=== PATIENT | male | born 1940 | race Caucasian/White ===

== ENCOUNTER 2016-09-28 19:10 | Inpatient (IN) | payer MEDICARE ==
[~2016-09-28] VITALS: Ht 170.2 cm; Wt 115.2 kg
[2016-09-28] MEDS ORDERED: MAG HYDROX/AL HYDROX/SIMETH 30 ML ORAL.SUSP PO PRN (20:00)
[2016-09-28] MEDS ORDERED: METHYL SALICYLATE/MENTHOL TOPICAL OINTMENT 29GM TUBE. TP PRN (20:00)
[2016-09-28] MEDS ORDERED: MAGNESIUM HYDROXIDE 2,400 MG/30 ML ORAL.SUSP. PO PRN (20:00)
[2016-09-28] MEDS ORDERED: ACETAMINOPHEN 325 MG TABLET PO PRN (20:00)
[2016-09-28] MEDS ORDERED: MAGN400T3 PO (20:25)
[2016-09-28] MEDS ORDERED: METF500T4 PO (20:25)
[2016-09-28] MEDS ORDERED: CYAN100031 PO (20:25)
[2016-09-28] MEDS ORDERED: ATOR20TA58 PO (20:25)
[2016-09-28] MEDS ORDERED: POTA10CA53 PO (20:25)
[2016-09-28] MEDS ORDERED: CLOT15CR4 TP (20:25)
[2016-09-28] MEDS ORDERED: FINA5TAB4 PO (20:25)
[2016-09-28] MEDS ORDERED: DULO30CA43 PO (20:25)
[2016-09-28] MEDS ORDERED: ASPI-630 PO (20:25)
[2016-09-28 20:31] LABS: ALBUMIN 3.7 g/dL (3.4-5.0); ALBUMIN/GLOBULIN RATIO 0.9 (1.0-1.7); CALCIUM 9.3 mg/dL (8.5-10.1); CREATININE 0.9 mg/dL (0.7-1.3); GFR 81.8; MAGNESIUM 1.9 mg/dL (1.8-2.4); POTASSIUM 3.8 mmol/L (3.5-5.1); TOTAL BILIRUBIN 0.4 mg/dL (0.2-1.0); TOTAL PROTEIN 7.7 g/dL (6.4-8.2)
[2016-09-28 20:39] LABS: BASO # 0.1 x10^3/uL (0.0-0.2); BASO % 1 % (0-3); EOS # 0.3 x10^3/uL (0.0-0.7); EOS % 4 % (0-3); HEMATOCRIT 44.7 % (39.0-53.0); HEMOGLOBIN 15.2 g/dL (13.0-17.5); LYMPH # 3.2 x10^3/uL (1.0-4.8); LYMPH % 35 % (24-48); MEAN CORPUSCULAR HEMOGLOBIN 31 pg (25-35); MEAN CORPUSCULAR HGB CONC 34 g/dL (31-37); MEAN CORPUSCULAR VOLUME 92 fL (79-100); MONO # 0.8 x10^3/uL (0.0-1.1); MONO % 9 % (0-9); NEUT # 4.6 x10^3uL (1.8-7.7); NEUT % 51 % (31-73); PLATELET COUNT 182 x10^3/uL (140-400); RED BLOOD COUNT 4.84 x10^6/uL (4.30-5.70); WHITE BLOOD COUNT 9.1 x10^3/uL (4.0-11.0)
[2016-09-28] MEDS ORDERED: POLY17PO5 PO (20:40)
[2016-09-28] MEDS ORDERED: METO25TA9 PO (20:40)
[2016-09-28] MEDS ORDERED: ZOLP5TAB PO (20:40)
[2016-09-28] MEDS ORDERED: OXYC-328 PO (20:40)
[2016-09-28] MEDS ORDERED: WHEA1POW5 PO (20:40)
[2016-09-28] MEDS ORDERED: MV-M1TAB8 PO (20:40)
[2016-09-28] MEDS ORDERED: TRAZ50TA15 PO (20:40)
[2016-09-28] MEDS ORDERED: ZOLPIDEM 5 MG TABLET. PO PRN (20:45)
[2016-09-28] MEDS: ATORVASTATIN CALCIUM 20 MG TABLET PO SCH (21:35)
[2016-09-28] MEDS: DULoxetine HCL 30 MG CAPSULE.DR PO SCH (21:36)
[2016-09-28] MEDS: traZODone 50 MG TABLET. PO SCH (21:36)
[2016-09-28 22:37] VITALS: BP 163/88
[2016-09-28] MEDS: CLOTRIMAZOLE 1% TOPICAL CREAM 30GM TUBE. TP SCH (23:50)
[2016-09-28] MEDS: oxyCODONE/APAP 10/325 1 TAB TABLET PO PRN (23:54)
--- NOTE | 2016-09-29 05:37 | EKG ---
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
[2016-09-29 06:23] VITALS: BP 158/77
[2016-09-29] MEDS: MULTIVITAMIN with MINERAL TABLET. PO SCH (08:16)
[2016-09-29] MEDS: FINASTERIDE 5 MG TABLET PO SCH (08:16)
[2016-09-29] MEDS: PSYLLIUM SEED (WITH SUGAR) PACKET. PO SCH ×3 (08:16→12:13)
[2016-09-29] MEDS: metFORMIN 500 MG TABLET PO SCH ×2 (08:16→17:23)
[2016-09-29] MEDS: CYANOCOBALAMIN (VITAMIN B-12) 1,000 MCG TABLET. PO SCH (08:16)
[2016-09-29] MEDS: MAGNESIUM OXIDE 400 MG TABLET PO SCH (08:16)
[2016-09-29] MEDS: METOPROLOL SUCC 24HR ER 25 MG TAB.ER.24H. PO SCH (08:17)
[2016-09-29] MEDS: ASPIRIN 81 MG TAB.CHEW PO SCH (08:17)
[2016-09-29] MEDS: DULoxetine HCL 30 MG CAPSULE.DR PO SCH ×2 (08:17→19:17)
[2016-09-29] MEDS: POTASSIUM CHLORIDE 10 MEQ TABLET.ER. PO SCH (08:17)
[2016-09-29] MEDS: CLOTRIMAZOLE 1% TOPICAL CREAM 30GM TUBE. TP SCH ×2 (08:31→19:17)
[2016-09-29] MEDS: oxyCODONE/APAP 10/325 1 TAB TABLET PO PRN ×3 (08:31→21:55)
[2016-09-29 13:53] LABS: THYROID STIM HORMONE (TSH) 2.091 uIU/mL (0.358-3.740)
[2016-09-29 16:26] VITALS: BP 153/87
[2016-09-29 16:29] LABS: BILIRUBIN,URINE NEG (NEG); CLARITY,URINE HAZY; COLOR,URINE YELLOW; GLUCOSE,URINE NEG (NEG); NITRITE,URINE NEG (NEG); UROBILINOGEN,URINE 0.2 mg/dL (0.2 mg/dL)
[2016-09-29 16:30] LABS: BACTERIA,URINE 0 /HPF (0-FEW); SQUAMOUS EPITHELIAL CELL,UR FEW /LPF
[2016-09-29 18:11] LABS: T3 TOTAL 124 ng/dL (71-180); THYROXINE 8.5 ug/dL (4.5-12.0)
--- NOTE | 2016-09-29 18:30 | PDOC ---
Exam Corey Demential Exam: Corey Note: Please also refer to the separate dictated note~for this date of service dictated separately.~Patient seen individually. Discussed the patient with Nursing staff reviewed the chart.~Reviewed interim history and current functioning. Reviewed vital signs,~Labs/ Radiology~and current medications noted below. Continue current treatment with the changes noted in the dictated addendum note Assessment: Vital Signs: Vital Signs Date Time Temp Pulse Resp B/P (MAP) Pulse Ox O2 Delivery O2 Flow Rate FiO2 09/29/16 16:26 98.9 75 18 153/87 (109) 97 09/28/16 22:37 Room Air I&O Intake and Output 09/29/16 07:00 Intake Total 0 ml Balance 0 ml Intake Oral 0 ml Labs: Laboratory Tests Test 09/28/16 20:04 09/29/16 12:01 09/29/16 14:44 White Blood Count 9.1 x10^3/uL (4.0-11.0) Red Blood Count 4.84 x10^6/uL (4.30-5.70) Hemoglobin 15.2 g/dL (13.0-17.5) Hematocrit 44.7 % (39.0-53.0) Mean Corpuscular Volume 92 fL (79-100) Mean Corpuscular Hemoglobin 31 pg (25-35) Mean Corpuscular Hemoglobin Concent 34 g/dL (31-37) Red Cell Distribution Width 13.0 % (11.5-14.5) Platelet Count 182 x10^3/uL (140-400) Neutrophils (%) (Auto) 51 % (31-73) Lymphocytes (%) (Auto) 35 % (24-48) Monocytes (%) (Auto) 9 % (0-9) Eosinophils (%) (Auto) 4 % (0-3) H Basophils (%) (Auto) 1 % (0-3) Neutrophils # (Auto) 4.6 x10^3uL (1.8-7.7) Lymphocytes # (Auto) 3.2 x10^3/uL (1.0-4.8) Monocytes # (Auto) 0.8 x10^3/uL (0.0-1.1) Eosinophils # (Auto) 0.3 x10^3/uL (0.0-0.7) Basophils # (Auto) 0.1 x10^3/uL (0.0-0.2) Sodium Level 141 mmol/L (136-145) Potassium Level 3.8 mmol/L (3.5-5.1) Chloride Level 102 mmol/L (98-107) Carbon Dioxide Level 34 mmol/L (21-32) H Anion Gap 5 (6-14) L Blood Urea Nitrogen 16 mg/dL (8-26) Creatinine 0.9 mg/dL (0.7-1.3) Estimated GFR (Cockcroft-Gault) 81.8 BUN/Creatinine Ratio 18 (6-20) Glucose Level 111 mg/dL (70-99) H Calcium Level 9.3 mg/dL (8.5-10.1) Magnesium Level 1.9 mg/dL (1.8-2.4) Iron Level 71 ug/dL (65-175) Total Iron Binding Capacity 277 ug/dL (250-450) Iron Saturation 26 % (15-34) Total Bilirubin 0.4 mg/dL (0.2-1.0) Aspartate Amino Transferase (AST) 23 U/L (15-37) Alanine Aminotransferase (ALT) 36 U/L (16-63) Alkaline Phosphatase 76 U/L (46-116) Total Protein 7.7 g/dL (6.4-8.2) Albumin 3.7 g/dL (3.4-5.0) Albumin/Globulin Ratio 0.9 (1.0-1.7) L Triglycerides Level 215 mg/dL (0-150) H Cholesterol Level 123 mg/dL (0-200) LDL Cholesterol, Calculated 33 mg/dL (0-100) VLDL Cholesterol, Calculated 43 mg/dL (0-40) H Non-HDL Cholesterol Calculated 76 mg/dL (0-129) HDL Cholesterol 47 mg/dL (40-60) Cholesterol/HDL Ratio 2.0 Vitamin B12 Level 481 pg/mL (247-911) 25-Hydroxy Vitamin D Total Pending Thyroid Stimulating Hormone (TSH) 2.091 uIU/mL (0.358-3.740) Thyroxine (T4) 8.5 ug/dL (4.5-12.0) Total Triiodothyronine (TT3) 124 ng/dL (71-180) RPR Titer Additional Testing Pending Glucose (Fingerstick) 124 mg/dL (70-99) H Urine Collection Type Unknown Urine Color Yellow Urine Clarity Hazy Urine pH 5.0 Urine Specific Oakley 1.025 Urine Protein Neg (NEG-TRACE) Urine Glucose (UA) Neg mg/dL (NEG) Urine Ketones (Stick) Trace mg/dL (NEG) Urine Blood Neg (NEG) Urine Nitrite Neg (NEG) Urine Bilirubin Neg (NEG) Urine Urobilinogen Dipstick 0.2 mg/dL (0.2 mg/dL) Urine Leukocyte Esterase Neg (NEG) Urine RBC 1-2 /HPF (0-2) Urine WBC 5-10 /HPF (0-4) Urine Squamous Epithelial Cells Few /LPF Urine Bacteria 0 /HPF (0-FEW) Urine Mucus Marked /LPF Current Medications: Meds: Current Medications Acetaminophen (Tylenol) 650 mg PRN Q6HRS PRN PO PAIN / TEMP Last administered on 09/28/16 21:35; Start 09/28/16 at 20:00 Multi-Ingredient Ointment (Analgesic [place]) 1 michelle PRN QID PRN TP MUSCLE PAIN; Start 09/28/16 at 20:00 Al Hydroxide/Mg Hydroxide (Mylanta Plus Xs) 15 ml PRN AFTMEALHC PRN PO DYSPEPSIA; Start 09/28/16 at 20:00 Magnesium Hydroxide (Milk Of Magnesia) 2,400 mg PRN QHS PRN PO CONSTIPATION; Start 09/28/16 at 20:00 Trazodone HCl (Desyrel) 75 mg QHS PO Last administered on 09/28/16 21:36; Start 09/28/16 at 21:00 Zolpidem Tartrate (Ambien) 5 mg PRN QHS PRN PO INSOMNIA; Start 09/28/16 at 20: 45 Aspirin (Children'S Aspirin) 81 mg DAILY PO Last administered on 09/29/16 08: 17; Start 09/29/16 at 09:00 Atorvastatin Calcium (Lipitor) 20 mg QHS PO Last administered on 09/28/16 21: 35; Start 09/28/16 at 22:00 Clotrimazole (Lotrimin) 1 michelle BID TP Last administered on 09/29/16 08:31; Start 09/28/16 at 22:00 Duloxetine HCl (Cymbalta) 30 mg BID PO Last administered on 09/29/16 08:17; Start 09/28/16 at 22:00 Finasteride (Proscar) 5 mg DAILY PO Last administered on 09/29/16 08:16; Start 09/29/16 at 09:00 Magnesium Oxide (Magnesium Oxide) 400 mg DAILY PO Last administered on 08:16; Start 09/29/16 at 09:00 Metformin HCl (Glucophage) 500 mg BIDWMEALS PO Last administered on 09/29/16 17:23; Start 09/29/16 at 08:00 Metoprolol Succinate (Toprol Xl) 25 mg DAILY PO Last administered on 09/29/16 08:17; Start 09/29/16 at 09:00 Oxycodone/ Acetaminophen (Percocet 10/325) 1 tab PRN Q4HRS PRN PO PAIN Last administered on 09/29/16 15:39; Start 09/28/16 at 21:15 Polyethylene Glycol (miraLAX) 17 gm QODAY PO ; Start 09/30/16 at 09:00 Cyanocobalamin (Vitamin B-12) 1,000 mcg DAILY PO Last administered on 08:16; Start 09/29/16 at 09:00 Multivitamins/ Calcium (Thera-M Plus) 1 tab DAILY PO Last administered on 08:16; Start 09/29/16 at 09:00 Potassium Chloride (Klor-Con) 10 meq DAILYWBKFT PO Last administered on 08:17; Start 09/29/16 at 08:00 Psyllium Hydrophilic Mucilloid (Metamucil) 1 pkt BIDACBL PO Last administered on 09/29/16 08:16; Start 09/29/16 at 07:30 Active Scripts Active Reported Ambien (Zolpidem Tartrate) 5 Mg Tablet 5 Mg PO PRN QHS PRN Benefiber (Wheat Dextrin) 1 Each Powd.pack 1 Packet PO BIDACBL Trazodone Hcl 50 Mg Tablet 75 Mg PO QHS Theragran-M Premier 50+ Caplet (Mv-Mn/Fa/Coq10/Lycopene/Lutein) 1 Each Tablet 1 Tab PO DAILY Miralax (Polyethylene Glycol 3350) 17 Gm Powd.pack 17 Gm PO QODAY Percocet 10-325 Mg Tablet (Oxycodone Hcl/Acetaminophen) 1 Each Tablet 1 Tab PO PRN Q4HRS PRN Metoprolol Succinate ( Xl ) (Metoprolol Succinate) 25 Mg Tab.er.24h 25 Mg PO DAILY Metformin Hcl 500 Mg Tablet 500 Mg PO BIDWMEALS Magnesium Oxide 400 Mg Tablet 500 Mg PO DAILY Klor-Con Sprinkle (Potassium Chloride) 10 Meq Capsule.er 10 Meq PO DAILY Finasteride 5 Mg Tablet 5 Mg PO DAILY Duloxetine Hcl 30 Mg Capsule.dr 30 Mg PO BID B-12 (Cyanocobalamin (Vitamin B-12)) 1,000 Mcg Tablet.er 1,000 Mcg PO DAILY Clotrimazole 15 Gm Cream..g. 1 Michelle TP BID Atorvastatin Calcium 20 Mg Tablet 20 Mg PO QHS Aspirin 81 Mg Tab.chew 81 Mg PO DAILY Diagnosis: Problems: (1) Anxiety disorder (2) Major depressive disorder, recurrent episode MARIA ELENA SHEPHERD MD Sep 29, 2016 18:30
[2016-09-29] MEDS: ARIPiprazole 5 MG TABLET PO SCH (18:46)
[2016-09-29] MEDS: traZODone 50 MG TABLET. PO SCH (19:17)
[2016-09-29] MEDS: ATORVASTATIN CALCIUM 20 MG TABLET PO SCH (19:17)
--- NOTE | 2016-09-30 01:47 | ACF ---
Admission Criteria Forms PSYCHIATRIC DISORDERS Clinical Indications for Inpatient Care (Place 'X' for any and all applicable criteria): Ongoing inpatient care may be needed for 1 or more of the following(1)(2)(3)(4)( 6)(7)(8): [ ]I. Danger to self or others not manageable at lower level of care. [ ]II. Grave disability (eg, inability to perform self care necessary at lower level of care) [ ]III. Agitation or inappropriate behavior interfering with care for primary condition (eg, attempting to discontinue lines or drains prematurely, unable to cooperate with respiratory care) [X]IV. Severe disability or disorder indicated by ALL of the following: [X]a) Severe behavioral health disorder-related symptoms or condition indicated by 1 or more of the following: [ ]i) Severe problem with cognition, memory, judgment, or impulse control [X]ii) Severe clinical manifestations (eg, hallucinations, delusions, other acute psychotic symptoms, cristina, extreme agitation or anxiety) [X]b) Patient management at lower level of care is not feasible until acute intervention or modification is initiated. Extended stay beyond goal length of stay for the primary condition may be needed untilALLof the following are present(1)(2)(3)(4)(722)(23): [ ]a) Danger to self or others is absent or manageable at lower level of care [ ]b) Behavior crisis management, including physical or chemical restraints, is required and is not available at a lower level of care. [ ]c) Behavioral symptoms (e.g., agitation, somnolence, inappropriate behavior) are present, and are not manageable at a lower level of care. [ ]d) Patient cannot understand follow-up treatment and crisis plan. [ ]e) Provider and supports are sufficiently available at lower level of care. [ ]f) Patient can participate (e.g., verify absence of plan for harm) and is in needed of monitoring. The original [facility] content created by [facility] [employer] has been revised. The portions of the content which have been revised are identified through the use of italic text, and [employer] has neither reviewed nor approved the modified material. All other unmodified content is copyright [facility] [employer]. Please see references footnoted in the original [facility] edition 2015 Admission Criteria Met?: Yes CED LINARES Sep 30, 2016 01:47
[2016-09-30 03:13] LABS: HEMOGLOBIN A1C 6.6 % (4.8-5.6)
[2016-09-30 06:15] VITALS: BP 134/71
[2016-09-30] MEDS ORDERED: POLYETHYLENE GLYCOL 3350 17 GM PACKET. PO SCH (09:00)
[2016-09-30] MEDS: CYANOCOBALAMIN (VITAMIN B-12) 1,000 MCG TABLET. PO SCH (09:32)
[2016-09-30] MEDS: DULoxetine HCL 30 MG CAPSULE.DR PO SCH (09:32)
[2016-09-30] MEDS: ARIPiprazole 5 MG TABLET PO SCH (09:32)
[2016-09-30] MEDS: MULTIVITAMIN with MINERAL TABLET. PO SCH (09:32)
[2016-09-30] MEDS: PSYLLIUM SEED (WITH SUGAR) PACKET. PO SCH ×3 (09:32→12:36)
[2016-09-30 09:33] VITALS: BP 134/71
[2016-09-30] MEDS: FINASTERIDE 5 MG TABLET PO SCH (09:33)
[2016-09-30] MEDS: POTASSIUM CHLORIDE 10 MEQ TABLET.ER. PO SCH (09:33)
[2016-09-30] MEDS: ASPIRIN 81 MG TAB.CHEW PO SCH (09:33)
[2016-09-30] MEDS: metFORMIN 500 MG TABLET PO SCH (09:33)
[2016-09-30] MEDS: MAGNESIUM OXIDE 400 MG TABLET PO SCH (09:33)
[2016-09-30] MEDS: METOPROLOL SUCC 24HR ER 25 MG TAB.ER.24H. PO SCH (09:33)
[2016-09-30] MEDS: CLOTRIMAZOLE 1% TOPICAL CREAM 30GM TUBE. TP SCH (09:35)
[2016-09-30] MEDS: oxyCODONE/APAP 10/325 1 TAB TABLET PO PRN (09:50)
[2016-09-30] MEDS ORDERED: CHOLECALCIFEROL (VITAMIN D3) 1,000 UNIT TABLET PO SCH (11:45)
--- NOTE | 2016-09-30 12:12 | HP ---
ADMIT DATE: 09/29/2016 PSYCHIATRIC ADMISSION HISTORY/EVALUATION This is a late entry of 09/29/2016 and covers elements not covered in my initial note of 09/29/2016. The patient was seen in the evening of 09/29/2016 for this evaluation. IDENTIFYING DATA: The patient is a 76-year-old male referred by Dr. Nasir Rebolledo his primary care physician after the patient was seen by Dr. Rebolledo and complained of suicidal ideation with worsening symptoms of depression emanating from bereavement since he lost his about a month back. He admits to feeling helpless, hopeless had talked about plans to slit his wrist. He was not eating, having sleep disturbance. He came to the Emergency Room with his son and then referred to us for inpatient psychiatric stabilization. I have discussed with nursing staff even prior to the patient's admission on a couple of occasions and at the time of the patient arriving on our unit, we reviewed current and past history at length. CHIEF COMPLAINT: "I have been depressed since my 1 month ago. No, I will not try to kill myself just a depression." HISTORY OF PRESENT ILLNESS: The patient reportedly lives at home with his stepson. His about one month ago from a chronic illness. He admits to worsening symptoms of depression with sleep and appetite changes. He has been treated on Cymbalta 30 mg b.i.d., and Ambien 5 mg at bedtime p.r.n. Apparently, he voiced suicidal ideation to his physician with plans to cut his wrist, but at the time of this admission, he thoroughly denies thoughts of wanting to hurt himself. No homicidal ideation. No clear history of bipolar disorder. PAST PSYCHIATRIC HISTORY: Positive for depression. The patient reportedly has a past history of alcohol abuse as shared with me by the social service staff and marijuana usage, but when I questioned him on it, he denied it. PAST MEDICAL HISTORY: Degenerative joint disease, diabetes mellitus, erectile dysfunction, vitamin D deficiency, hypertension, spinal stenosis, sleep apnea, obesity, possible ringworm. CODE STATUS: Full. Accu-Cheks daily. DIET: Regular. Takes his medications full. Ambulates ad flor with walker. UA was negative on 09/28/2016. CURRENT PSYCHOTROPICS: Cymbalta 30 mg twice a day, Abilify 5 mg a day, Ambien 5 mg at bedtime p.r.n. FAMILY HISTORY: Noncontributory. SOCIAL HISTORY: As noted above. MENTAL STATUS EXAMINATION: The patient was seen individually evening of 09/29/2016. He is well-oriented, anxious already wanting to be discharged, stating he does not have any suicidal ideation. Speech is coherent. Intellectual average. Insight good. Mood is dysphoric, anxious. Attention span short. Language function intact. ASSETS: The patient is cognitively intact, has a support of his stepson, has a home he lives in. Weaknesses loss of his recently. Reaction to hospitalization. The patient states his primary care physician had told him that he would be going to "[facility]" for a few days to get his antidepressants adjusted. The patient is already wanting to be discharged, but after we discussed that he is agreeable to staying at least another night while we made the changes in his psychotropics noted below to see how he does. Again, he currently denies suicidal ideation. REVIEW OF SYSTEMS: Ambulation impaired with a walker. No CV, , pulmonary, eye system symptoms on review. IMPRESSION: Major depressive disorder, recurrent with history of suicidal ideation, no current suicidal ideation; anxiety disorder, unspecified. Rest diagnoses as above. Past history of alcohol abuse as shared with me by the nursing staff and history of marijuana abuse. PLAN: Admit to the geropsychiatry unit at [facility]. I will see the patient daily individually from a psychiatric standpoint medical followup per Dr. Dotson/Dr. Dwyer. Continue patient on his current psychotropics. Draw routine admission labs. Augment the Cymbalta with Abilify 5 mg a day for his dosage evening of 09/29/2016 and then every day in the morning at 9:00 a.m. We will make further changes depending on the patient's progress. If the patient insists on discharge on 09/30/2016, we may have to go along with this perhaps it may have to be against medical advice since we have not had long enough to assess the patient inpatient, but he currently denies suicidal ideation and there is no criteria to hold him involuntarily. MARIA ELENA SHEPHERD MD DR: AJITH/navid JOB#: [id number] / [id number]
[2016-09-30] MEDS ORDERED: ARIP5TAB13 PO (14:39)
[2016-09-30] MEDS ORDERED: CHOL10003 PO (14:51)
--- NOTE | 2016-09-30 15:03 | HP ---
ADMIT DATE: 09/29/2016 REASON FOR ADMISSION TO [facility]: This is a 76-year-old male who signed himself in. He was encouraged by his physician to be admitted to the [facility]. He was under the impression that this was a different type of facility, but basically he was admitted with some suicidal ideation. 1 month ago. She was chronically ill and it was not unexpected; however, he has been depressed since she . He does state he has not been eating or sleeping very well and feels helpless and hopeless. The patient denies planning to slit his wrist, which stated on the intake. He does not feel that he is bad enough to be admitted to the [facility]. PAST MEDICAL HISTORY: Degenerative disk disease, diabetes, cataracts, insomnia, vitamin D deficiency, hypertension, spinal stenosis, sleep apnea, but his machine is broken and obesity, marijuana use and apparent ringworm. Other medical history is diabetes, hypertension, osteoarthritis, hyperlipidemia, anxiety, asthma and depression, B12 deficiency, diverticulitis in the past. MEDICATIONS: The patient medications are reviewed and he is on Cymbalta 30 mg, but the date of onset or starting this medicine is not on the chart. He was also prescribed a 1-month supply of Ambien 5 mg and also takes Desyrel or takes trazodone for that as well. ALLERGIES: None. PAST SURGICAL HISTORY: Cataract excision bilaterally, Resection of the colon and reversal of his colostomy, HABITS: The patient does smoke marijuana and has smoked marijuana since he was young. No tobacco. 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 REVIEW OF SYSTEMS: Positive for rash on the right anterior thigh, chronic pain. No bowel or bladder issues. No fever, sore throat, chest pain, shortness of breath. PHYSICAL EXAMINATION: VITAL SIGNS: Blood pressure is 153/87, pulse 75, respirations 18, temperature 98.9, pulse ox is 97% on room air. Height is 67 inches, weight 254 pounds, BMI is 39.8. GENERAL: Pleasant male in no acute distress. He is alert and oriented x 3. He is calm and cooperative, slightly hard of hearing. HEENT: Pupils are equal, round, react to light. Extraocular muscles are intact. Nose is patent. Throat was clear. NECK: Supple, without adenopathy. LUNGS: Clear to auscultation. CARDIOVASCULAR: Regular rhythm and rate with a 2/6 systolic murmur heard at the pulmonic and mitral area. ABDOMEN: Soft, nontender. EXTREMITIES: Nonpitting edema. SKIN: On his right anterior thigh, he has a large, round, erythematous patch with central clearing consistent with ringworm. NEUROLOGIC: Cranial nerves are intact. Gait walks with a walker. PSYCHIATRIC: Mood is slightly depressed. LABORATORY DATA: His B12 was 481. Glucoses are fairly controlled. Vitamin D 20.4. UA, 5-10 white cells, negative leukocyte esterase, negative nitrites. RPR is nonreactive. ASSESSMENT: 1. Major depressive disorder. 2. Type 2 diabetes. 3. Morbid obesity. 4. Ringworm of the right anterior thigh. 5. Marijuana use. 6. Vitamin D deficiency. 7. Hypertension. 8. Sleep apnea. 9. Recent loss of , questionable some transient suicidal ideation. PLAN: I encouraged him to stay at least for a couple of days. To meet with Dr. Pacheco and have some medication adjustments. He seemed agreeable to that. We will monitor his medical conditions. ISHAAN KEEN DO DR: JESSY/navid JOB#: [id number] / [id number]
--- NOTE | 2016-09-30 18:10 | PDOC ---
Exam Corey Demential Exam: Corey Note: Please also refer to the separate dictated note~for this date of service dictated separately.~Patient seen individually. Discussed the patient with Nursing staff reviewed the chart.~Reviewed interim history and current functioning. Reviewed vital signs,~Labs/ Radiology~and current medications noted below. Continue current treatment with the changes noted in the dictated addendum note Assessment: Vital Signs: Vital Signs Date Time Temp Pulse Resp B/P (MAP) Pulse Ox O2 Delivery O2 Flow Rate FiO2 09/30/16 09:33 70 134/71 09/30/16 06:15 97.7 20 95 09/28/16 22:37 Room Air I&O Intake and Output 09/30/16 07:00 Intake Total 1200 ml Balance 1200 ml Intake Oral 1200 ml Labs: Laboratory Tests Test 09/30/16 07:39 Glucose (Fingerstick) 149 mg/dL (70-99) H Current Medications: Meds: Current Medications Acetaminophen (Tylenol) 650 mg PRN Q6HRS PRN PO PAIN / TEMP Last administered on 09/28/16 21:35; Start 09/28/16 at 20:00; Stop 09/30/16 at 15:31; Status DC Multi-Ingredient Ointment (Analgesic Bear) 1 michelle PRN QID PRN TP MUSCLE PAIN; Start 09/28/16 at 20:00; Stop 09/30/16 at 15:31; Status DC Al Hydroxide/Mg Hydroxide (Mylanta Plus Xs) 15 ml PRN AFTMEALHC PRN PO DYSPEPSIA; Start 09/28/16 at 20:00; Stop 09/30/16 at 15:31; Status DC Magnesium Hydroxide (Milk Of Magnesia) 2,400 mg PRN QHS PRN PO CONSTIPATION; Start 09/28/16 at 20:00; Stop 09/30/16 at 15:31; Status DC Trazodone HCl (Desyrel) 75 mg QHS PO Last administered on 09/29/16 19:17; Start 09/28/16 at 21:00; Stop 09/30/16 at 15:31; Status DC Zolpidem Tartrate (Ambien) 5 mg PRN QHS PRN PO INSOMNIA; Start 09/28/16 at 20: 45; Stop 09/30/16 at 15:31; Status DC Aspirin (Children'S Aspirin) 81 mg DAILY PO Last administered on 09/30/16 09: 33; Start 09/29/16 at 09:00; Stop 09/30/16 at 15:31; Status DC Atorvastatin Calcium (Lipitor) 20 mg QHS PO Last administered on 09/29/16 19: 17; Start 09/28/16 at 22:00; Stop 09/30/16 at 15:31; Status DC Clotrimazole (Lotrimin) 1 michelle BID TP Last administered on 09/30/16 09:35; Start 09/28/16 at 22:00; Stop 09/30/16 at 15:31; Status DC Duloxetine HCl (Cymbalta) 30 mg BID PO Last administered on 09/30/16 09:32; Start 09/28/16 at 22:00; Stop 09/30/16 at 15:31; Status DC Finasteride (Proscar) 5 mg DAILY PO Last administered on 09/30/16 09:33; Start 09/29/16 at 09:00; Stop 09/30/16 at 15:31; Status DC Magnesium Oxide (Magnesium Oxide) 400 mg DAILY PO Last administered on 09:33; Start 09/29/16 at 09:00; Stop 09/30/16 at 15:31; Status DC Metformin HCl (Glucophage) 500 mg BIDWMEALS PO Last administered on 09/30/16 09:33; Start 09/29/16 at 08:00; Stop 09/30/16 at 15:31; Status DC Metoprolol Succinate (Toprol Xl) 25 mg DAILY PO Last administered on 09/30/16 09:33; Start 09/29/16 at 09:00; Stop 09/30/16 at 15:31; Status DC Oxycodone/ Acetaminophen (Percocet 10/325) 1 tab PRN Q4HRS PRN PO PAIN Last administered on 09/30/16 09:50; Start 09/28/16 at 21:15; Stop 09/30/16 at 15:31 ; Status DC Polyethylene Glycol (miraLAX) 17 gm QODAY PO Last administered on 09/30/16 09: 35; Start 09/30/16 at 09:00; Stop 09/30/16 at 15:31; Status DC Cyanocobalamin (Vitamin B-12) 1,000 mcg DAILY PO Last administered on 09:32; Start 09/29/16 at 09:00; Stop 09/30/16 at 15:31; Status DC Multivitamins/ Calcium (Thera-M Plus) 1 tab DAILY PO Last administered on 09:32; Start 09/29/16 at 09:00; Stop 09/30/16 at 15:31; Status DC Potassium Chloride (Klor-Con) 10 meq DAILYWBKFT PO Last administered on 09:33; Start 09/29/16 at 08:00; Stop 09/30/16 at 15:31; Status DC Psyllium Hydrophilic Mucilloid (Metamucil) 1 pkt BIDACBL PO Last administered on 09/30/16 09:32; Start 09/29/16 at 07:30; Stop 09/30/16 at 15:31; Status DC Aripiprazole (Abilify) 5 mg DAILY PO Last administered on 09/30/16 09:32; Start 09/29/16 at 18:45; Stop 09/30/16 at 15:31; Status DC Vitamin D (Vitamin D3) 2,000 unit BIDACLD PO Last administered on 09/30/16 12: 37; Start 09/30/16 at 11:45; Stop 09/30/16 at 15:31; Status DC Active Scripts Active Reported Vitamin D3 (Cholecalciferol (Vitamin D3)) 1,000 Unit Tablet 2,000 Unit PO BID Abilify (Aripiprazole) 5 Mg Tablet 1 Tab PO DAILY Ambien (Zolpidem Tartrate) 5 Mg Tablet 5 Mg PO PRN QHS PRN Benefiber (Wheat Dextrin) 1 Each Powd.pack 1 Packet PO BIDACBL Trazodone Hcl 50 Mg Tablet 75 Mg PO QHS Theragran-M Premier 50+ Caplet (Mv-Mn/Fa/Coq10/Lycopene/Lutein) 1 Each Tablet 1 Tab PO DAILY Miralax (Polyethylene Glycol 3350) 17 Gm Powd.pack 17 Gm PO QODAY Percocet 10-325 Mg Tablet (Oxycodone Hcl/Acetaminophen) 1 Each Tablet 1 Tab PO PRN Q4HRS PRN Metoprolol Succinate ( Xl ) (Metoprolol Succinate) 25 Mg Tab.er.24h 25 Mg PO DAILY Metformin Hcl 500 Mg Tablet 500 Mg PO BIDWMEALS Magnesium Oxide 400 Mg Tablet 500 Mg PO DAILY Klor-Con Sprinkle (Potassium Chloride) 10 Meq Capsule.er 10 Meq PO DAILY Finasteride 5 Mg Tablet 5 Mg PO DAILY Duloxetine Hcl 30 Mg Capsule.dr 30 Mg PO BID B-12 (Cyanocobalamin (Vitamin B-12)) 1,000 Mcg Tablet.er 1,000 Mcg PO DAILY Clotrimazole 15 Gm Cream..g. 1 Michelle TP BID Atorvastatin Calcium 20 Mg Tablet 20 Mg PO QHS Aspirin 81 Mg Tab.chew 81 Mg PO DAILY Diagnosis: Problems: (1) Major depressive disorder, recurrent episode (2) Anxiety disorder MARIA ELENA SHEPHERD MD Sep 30, 2016 18:10
--- NOTE | 2016-09-30 23:57 | DS ---
DATE OF DISCHARGE: 09/30/2016 DISCHARGE SUMMARY AND PSYCHIATRIC PROGRESS NOTE REASON FOR ADMISSION: Please refer to the admission history for details. Briefly, the patient is a 76-year-old male, referred from the [facility] Emergency Room in [place] where he presented on a direct referral from his primary care physician on account of worsening symptoms of depression following the loss of his 1 month ago. The patient apparently lives at home with his stepson and had been getting more depressed, hopeless, helpless, considered suicidal with a plan to use a knife. He was sent to the ER, evaluated and then referred to us. He reportedly has a past history of alcohol abuse per social service staff, although the patient denied this to me. He also has a history of marijuana abuse. SIGNIFICANT FINDINGS AND CLINICAL COURSE: Following admission, the patient was seen by myself from a psychiatric standpoint, followed medically per Dr. Dotson/Dr. Dwyer. At time of admission, he was on Cymbalta 30 mg b.i.d., which was continued and augmented with Abilify 5 mg a day. He was maintained on Ambien 5 mg at bedtime p.r.n. Just a day into the hospitalization, the patient was insisting on discharge. He denied active suicidal ideation and there was no criteria to proceed with any involuntary hospitalization. We tried to talk the patient into continuing the hospitalization adjustments of his psychotropics, but he was unwilling. He was discharged against medical advice on 09/30/2016. REVIEW OF SYSTEMS: Prior to discharge, no CV, , pulmonary, eye, ENT system symptoms on review. MENTAL STATUS EXAM: Reasonably oriented. Speech coherent, abstraction fair, computation impaired, language function intact. Mood showing improvement. Affect, mood congruent. CONDITION ON DISCHARGE: Slightly improved. FINAL DIAGNOSES: Major depressive disorder, moderate, in partial remission; anxiety disorder, unspecified. Rest diagnoses unchanged from admission. DISCHARGE MEDICATIONS: He is given a week supply with 3 refills. DISCHARGE INSTRUCTIONS: Outpatient followup recommended with Dr. Gaming from a psychiatric standpoint and back with his primary care physician from a medical standpoint. MAN Shaggy SHEPHERD MD DR: AJITH/navid JOB#: [id number] / [id number]
== END 2016-09-30 15:30 | disposition left against medical advice (07) | DRG 885 ==
LOC: GEROPSY 19:40
PROVIDERS: ADMIT Psychiatry & Neurology Psychiatry; ATTEND Psychiatry & Neurology Psychiatry
DX: F32.4 Major depressive disorder, single episode, in partial remission (principal); E11.9 Type 2 diabetes mellitus without complications; R45.851 Suicidal ideations; E66.01 Morbid (severe) obesity due to excess calories; E55.9 Vitamin D deficiency, unspecified; B35.9 Dermatophytosis, unspecified; I10 Essential (primary) hypertension; E78.5 Hyperlipidemia, unspecified; M48.00 Spinal stenosis, site unspecified; M19.90 Unspecified osteoarthritis, unspecified site; F41.9 Anxiety disorder, unspecified; F12.90 Cannabis use, unspecified, uncomplicated; G47.30 Sleep apnea, unspecified; J45.909 Unspecified asthma, uncomplicated; Z93.3 Colostomy status; Z68.39 Body mass index [BMI] 39.0-39.9, adult; Z98.42 Cataract extraction status, left eye; Z98.41 Cataract extraction status, right eye; Z90.49 Acquired absence of other specified parts of digestive tract
CPT/HCPCS: 36415; 80053; 80061; 81001; 82306; 82607; 82947; 83036; 83540; 83550; 83735; 84436; 84443; 84480; 85025; 86592; 86593; 87086; 93005

== ENCOUNTER 2017-02-25 16:54 | Inpatient (IN) | payer MEDICARE ==
[~2017-02-25] VITALS: Ht 170.2 cm; Wt 115.2 kg
[~2017-02-25 16:54] MED LIST: ARIP5TAB13 PO; ASPI-630 PO; ATOR20TA58 PO; CHOL10003 PO; CLOT15CR4 TP; CYAN100031 PO; DULO30CA43 PO; FINA5TAB4 PO; MAGN400T3 PO; METF500T4 PO; METO-239 PO; MV-M1TAB8 PO; OXYC-328 PO; POLY17PO5 PO; POTA10CA53 PO; TRAZ50TA15 PO; WHEA1POW5 PO; ZOLP5TAB PO
--- NOTE | 2017-02-25 17:32 | EKG ---
[address] [address] Test Date: 2017-02-25 Test Time: 16:57:41 Pat Name: JULY DAVID Department: Room: Gender: M [place] Operator: YVON : 1940 Requested By: BELTRAN LAIRD Order Number: [id number] Reading MD: Shawn Bradley MD Measurements Intervals [place] Rate: 70 P: 62 MI: 174 QRS: 13 QRSD: 82 T: 68 QT: 366 QTc: 398 Interpretive Statements SINUS RHYTHM Electronically Signed On 03-06-2017 15:54:06 WEAPONS OFFICER by Shawn Bradley MD
--- NOTE | 2017-02-25 17:45 | PHYS DOC ---
Text Text See Dr. Jones chart for details Impression: 1. Mental Status change 2. Depression 3. Anxiety 4. UTI- ?, WBC's 5. Suicide Ideation Admit [facility] (GEOFFREY CONLEY MD) General Chief Complaint: PSYCH EVALUATION Stated Complaint: [facility] Eval Time Seen by MD: 17:36 Source: patient, other Exam Limitations: no limitations Problems: (BELTRAN JONES DO) Time Seen by MD: 21:02 Problems: (GEOFFREY CONLEY MD) History of Present Illness Initial Comments Patient is a 77-year-old male sent to the emergency department from [facility] for medical clearance and [facility] admission. Medical records indicate that the patient has been with worsening depression as his recently passed 6 months ago. He has been expressing suicidal ideation and reportedly had a knife to his wrist earlier this morning. In the ED the patient is calm and cooperative, he details to me that he has suffered with bouts of depression intermittently almost his whole life. He has dealt with him in the past with meditation, yoga, and Church. The loss of his has been something that he's been unable to come to terms with and now he feels that he's lost control of his life as his house is being foreclosed upon. His only complaints in the emergency Department R discomfort due to the uncomfortable bed and hunger, I have asked that we get him something to eat while he is waiting to be cleared. Patient has prior [facility] admission in September 2016. Patient is full code Timing/Duration: other Severity: severe Modifying Factors: improves with other Associated Symptoms: other (BELTRAN JONES DO) Allergies: Coded Allergies: No Known Drug Allergies (Unverified , 09/28/16) Past Medical History Medical History: other (DJD, diabetes, cataracts, insomnia, vitamin D deficiency, hypertension, spinal stenosis, obstructive sleep apnea, diverticulitis, hyperlipidemia, obesity, asthma, osteoarthritis, depression,) Surgical History: other (colostomy) (BELTRAN JONES DO) Social History Smoker: non-smoker Alcohol: none Drugs: none (BELTRAN JONES DO) Review of Systems Constitutional: denies chills, denies fever Respiratory: denies cough, denies shortness of breath Cardiovascular: denies chest pain, denies palpitations, denies syncope Gastrointestinal: denies abdominal pain, denies nausea, denies vomiting Musculoskeletal: see HPI, back pain, joint pain, denies neck pain Psychiatric/Neurological: see HPI, denies headache, denies numbness, denies paresthesia (BELTRAN JONES DO) Physical Exam General Appearance: no apparent distress (obese and disheveled) Ear, Nose, Throat: hearing grossly normal, normal ENT inspection, normal pharynx Neck: non-tender, supple Respiratory: normal breath sounds, no respiratory distress Cardiovascular: normal peripheral pulses, regular rate, rhythm Gastrointestinal: normal bowel sounds, non tender, soft Back: no CVA tenderness, no vertebral tenderness Extremities: normal range of motion, non-tender Neurologic/Psychiatric: power grader operator II-XII nml as tested, no motor/sensory deficits, alert, oriented x 3, depressed affect (no hallucinations, suicidal or homicidal ideation noted) Skin: normal color, warm/dry (BELTRAN JONES DO) Orders, Labs, Meds EKG: Normal sinus rhythm 70 bpm, diffuse flattened T waves no ST segment elevation. Interpreted by me. CBC and chemistry studies overall unremarkable. Urine specimen remains pending. 1933: Urine not yet collected, patient will be signed out to Dr. Conley at 1800 shift change. See his documentation for patient disposition. (BELTRAN JONES DO) BELTRAN JONES DO Feb 25, 2017 17:45 GEOFFREY CONLEY MD Feb 25, 2017 21:08
[2017-02-25 18:20] LABS: BASO # 0.1 x10^3/uL (0.0-0.2); BASO % 1 % (0-3); EOS # 0.4 x10^3/uL (0.0-0.7); EOS % 4 % (0-3); HEMATOCRIT 46.4 % (39.0-53.0); HEMOGLOBIN 15.5 g/dL (13.0-17.5); LYMPH # 2.6 x10^3/uL (1.0-4.8); LYMPH % 27 % (24-48); MEAN CORPUSCULAR HEMOGLOBIN 31 pg (25-35); MEAN CORPUSCULAR HGB CONC 34 g/dL (31-37); MEAN CORPUSCULAR VOLUME 92 fL (79-100); MONO # 0.7 x10^3/uL (0.0-1.1); MONO % 7 % (0-9); NEUT % 61 % (31-73); PLATELET COUNT 169 x10^3/uL (140-400); RED BLOOD COUNT 5.04 x10^6/uL (4.30-5.70); RED CELL DISTRIBUTION WIDTH 13.5 % (11.5-14.5); WHITE BLOOD COUNT 9.8 x10^3/uL (4.0-11.0)
[2017-02-25 18:37] LABS: ALBUMIN 3.9 g/dL (3.4-5.0); ALBUMIN/GLOBULIN RATIO 0.9 (1.0-1.7); CALCIUM 9.8 mg/dL (8.5-10.1); CREATININE 0.8 mg/dL (0.7-1.3); GFR 93.5; MAGNESIUM 1.9 mg/dL (1.8-2.4); POTASSIUM 4.2 mmol/L (3.5-5.1); TOTAL BILIRUBIN 0.5 mg/dL (0.2-1.0); TOTAL PROTEIN 8.2 g/dL (6.4-8.2)
[2017-02-25 20:42] LABS: BILIRUBIN,URINE NEG (NEG); CLARITY,URINE CLEAR; COLOR,URINE YELLOW; GLUCOSE,URINE NEG (NEG)
[2017-02-25 20:45] LABS: BACTERIA,URINE 0 /HPF (0-FEW); NITRITE,URINE NEG (NEG); SQUAMOUS EPITHELIAL CELL,UR FEW /LPF; UROBILINOGEN,URINE 2 mg/dL (0.2 mg/dL)
[2017-02-25] MEDS ORDERED: CEPHALEXIN 250 MG CAPSULE PO ONE (21:15)
[2017-02-25] MEDS ORDERED: oxyCODONE/APAP 5/325 1 TAB TABLET ONE (22:04)
[2017-02-25] MEDS ORDERED: MAGNESIUM HYDROXIDE 2,400 MG/30 ML ORAL.SUSP. PO PRN (23:00)
[2017-02-25] MEDS ORDERED: MAG HYDROX/AL HYDROX/SIMETH 30 ML ORAL.SUSP PO PRN (23:00)
[2017-02-25] MEDS ORDERED: ACETAMINOPHEN 325 MG TABLET PO PRN (23:00)
[2017-02-25] MEDS ORDERED: ZOLPIDEM 5 MG TABLET. PO PRN (23:00)
[2017-02-25] MEDS ORDERED: METHYL SALICYLATE/MENTHOL TOPICAL OINTMENT 29GM TUBE. TP PRN (23:00)
[2017-02-26 03:49] VITALS: BP 116/76
[2017-02-26 05:55] VITALS: BP 148/78
[2017-02-26] MEDS: PSYLLIUM SEED (WITH SUGAR) PACKET. PO SCH ×2 (08:27→12:03)
[2017-02-26] MEDS: metFORMIN 500 MG TABLET PO SCH ×2 (08:28→17:03)
[2017-02-26] MEDS: POTASSIUM CHLORIDE 10 MEQ TABLET.ER. PO SCH (08:28)
[2017-02-26] MEDS: ARIPiprazole 5 MG TABLET PO SCH (08:28)
[2017-02-26] MEDS: CEPHALEXIN 250 MG CAPSULE PO SCH ×3 (08:28→20:06)
[2017-02-26] MEDS: MULTIVITAMIN with MINERAL TABLET. PO SCH (08:28)
[2017-02-26] MEDS: ASPIRIN 81 MG TAB.CHEW PO SCH (08:28)
[2017-02-26] MEDS: FINASTERIDE 5 MG TABLET PO SCH (08:28)
[2017-02-26] MEDS: MAGNESIUM OXIDE 400 MG TABLET PO SCH (08:28)
[2017-02-26] MEDS: DULoxetine HCL 30 MG CAPSULE.DR PO SCH ×2 (08:29→20:07)
[2017-02-26] MEDS: METOPROLOL SUCC 24HR ER 25 MG TAB.ER.24H. PO SCH (08:29)
[2017-02-26] MEDS: CYANOCOBALAMIN (VITAMIN B-12) 1,000 MCG TABLET. PO SCH (08:29)
[2017-02-26] MEDS: CHOLECALCIFEROL (VITAMIN D3) 1,000 UNIT TABLET PO SCH ×2 (08:29→20:06)
[2017-02-26] MEDS: CLOTRIMAZOLE 1% TOPICAL CREAM 30GM TUBE. TP SCH ×3 (08:30→21:00)
[2017-02-26 10:36] LABS: THYROID STIM HORMONE (TSH) 1.844 uIU/mL (0.358-3.740)
[2017-02-26 16:07] LABS: T3 TOTAL 135 ng/dL (71-180); THYROXINE 8.9 ug/dL (4.5-12.0)
[2017-02-26 16:16] VITALS: BP 172/83
[2017-02-26] MEDS: ATORVASTATIN CALCIUM 20 MG TABLET PO SCH (20:10)
[2017-02-26] MEDS: LACTOBACILLUS RHAMNOSUS GG 1 CAPSULE. PO SCH (20:11)
[2017-02-26] MEDS: traZODone 50 MG TABLET. PO SCH (20:11)
--- NOTE | 2017-02-26 20:33 | PDOC ---
Exam Note: Corey Note: Please also refer to the separate dictated note~for this date of service dictated separately.~Patient seen individually. Discussed the patient with Nursing staff reviewed the chart.~Reviewed interim history and current functioning. Reviewed vital signs,~Labs/ Radiology~and current medications noted below. Continue current treatment with the changes noted in the dictated addendum note Assessment: Vital Signs: Vital Signs Date Time Temp Pulse Resp B/P (MAP) Pulse Ox O2 Delivery O2 Flow Rate FiO2 02/26/17 16:16 97.2 75 18 172/83 (112) 96 02/25/17 22:20 Room Air I&O Intake and Output 02/26/17 07:00 Intake Total 120 ml Balance 120 ml Intake Oral 120 ml # Voids 1 Labs: Laboratory Tests Test 02/25/17 23:59 02/26/17 19:19 Triglycerides Level 85 mg/dL (0-150) Cholesterol Level 135 mg/dL (0-200) LDL Cholesterol, Calculated 60 mg/dL (0-100) VLDL Cholesterol, Calculated 17 mg/dL (0-40) Non-HDL Cholesterol Calculated 77 mg/dL (0-129) HDL Cholesterol 58 mg/dL (40-60) Cholesterol/HDL Ratio 2.0 Thyroid Stimulating Hormone (TSH) 1.844 uIU/mL (0.358-3.740) Thyroxine (T4) 8.9 ug/dL (4.5-12.0) Total Triiodothyronine (TT3) 135 ng/dL (71-180) Rapid Plasma Reagin Pending Glucose (Fingerstick) 155 mg/dL (70-99) H Current Medications: Meds: Current Medications Cephalexin HCl (Keflex) 500 mg 1X ONCE PO Last administered on 02/25/17at 22:10 ; Start 02/25/17 at 21:15; Stop 02/26/17 at 17:55; Status DC Cephalexin HCl (Keflex) 500 mg TID PO Last administered on 02/26/17at 20:06; Start 02/26/17 at 09:00 Oxycodone/ Acetaminophen (Percocet 5/325) 1 tab STK-MED ONCE .ROUTE ; Start at 22:04; Stop 02/25/17 at 22:05; Status DC Acetaminophen (Tylenol) 650 mg PRN Q6HRS PRN PO PAIN / TEMP; Start 02/25/17 at 23:00 Multi-Ingredient Ointment (Analgesic Lipscomb) 1 michelle PRN QID PRN TP MUSCLE PAIN; Start 02/25/17 at 23:00 Al Hydroxide/Mg Hydroxide (Mylanta Plus Xs) 15 ml PRN AFTMEALHC PRN PO DYSPEPSIA; Start 02/25/17 at 23:00 Magnesium Hydroxide (Milk Of Magnesia) 2,400 mg PRN QHS PRN PO CONSTIPATION Last administered on 02/26/17at 17:02; Start 02/25/17 at 23:00 Aripiprazole (Abilify) 5 mg DAILY PO Last administered on 02/26/17 08:28; Start 02/26/17 at 09:00 Duloxetine HCl (Cymbalta) 30 mg BID PO Last administered on 02/26/17at 20:07; Start 02/26/17 at 09:00 Trazodone HCl (Desyrel) 75 mg QHS PO Last administered on 02/26/17at 20:11; Start 02/26/17 at 21:00 Zolpidem Tartrate (Ambien) 5 mg PRN QHS PRN PO INSOMNIA; Start 02/25/17 at 23: 00 Aspirin (Children'S Aspirin) 81 mg DAILY PO Last administered on 02/26/17 08: 28; Start 02/26/17 at 09:00 Atorvastatin Calcium (Lipitor) 20 mg QHS PO Last administered on 02/26/17at 20: 10; Start 02/26/17 at 21:00 Vitamin D (Vitamin D3) 2,000 unit BID PO Last administered on 02/26/17at 20:06; Start 02/26/17 at 09:00 Clotrimazole (Lotrimin) 1 michelle BID TP Last administered on 02/26/17 20:11; Start 02/26/17 at 09:00 Finasteride (Proscar) 5 mg DAILY PO Last administered on 02/26/17 08:28; Start 02/26/17 at 09:00 Magnesium Oxide (Magnesium Oxide) 400 mg DAILY PO Last administered on at 08:28; Start 02/26/17 at 09:00 Metformin HCl (Glucophage) 500 mg BIDWMEALS PO Last administered on 02/26/17at 17:03; Start 02/26/17 at 08:00 Metoprolol Succinate (Toprol Xl) 25 mg DAILY PO Last administered on 02/26/17at 08:29; Start 02/26/17 at 09:00 Oxycodone/ Acetaminophen (Percocet 10/325) 1 tab PRN Q4HRS PRN PO PAIN; Start 02/25/17 at 23:00 Polyethylene Glycol (miraLAX) 17 gm QODAY PO ; Start 02/27/17 at 09:00 Cyanocobalamin (Vitamin B-12) 1,000 mcg DAILY PO Last administered on at 08:29; Start 02/26/17 at 09:00 Multivitamins/ Calcium (Thera-M Plus) 1 tab DAILY PO Last administered on at 08:28; Start 02/26/17 at 09:00 Potassium Chloride (Klor-Con) 10 meq DAILYWBKFT PO Last administered on at 08:28; Start 02/26/17 at 08:00 Psyllium Hydrophilic Mucilloid (Metamucil) 1 pkt BIDACBL PO Last administered on 02/26/17at 12:03; Start 02/26/17 at 07:30 Lactobacillus Rhamnosus (Culturelle) 1 cap BID PO Last administered on at 20:11; Start 02/26/17 at 21:00 Active Scripts Active Reported Vitamin D3 (Cholecalciferol (Vitamin D3)) 1,000 Unit Tablet 2,000 Unit PO BID Abilify (Aripiprazole) 5 Mg Tablet 5 Mg PO DAILY Ambien (Zolpidem Tartrate) 5 Mg Tablet 5 Mg PO PRN QHS PRN Benefiber (Wheat Dextrin) 1 Each Powd.pack 1 Packet PO BIDACBL Trazodone Hcl 50 Mg Tablet 75 Mg PO QHS Theragran-M Premier 50+ Caplet (Mv-Mn/Fa/Coq10/Lycopene/Lutein) 1 Each Tablet 1 Tab PO DAILY Miralax (Polyethylene Glycol 3350) 17 Gm Powd.pack 17 Gm PO QODAY Percocet 10-325 Mg Tablet (Oxycodone Hcl/Acetaminophen) 1 Each Tablet 1 Tab PO PRN Q4HRS PRN Metoprolol Succinate ( Xl ) (Metoprolol Succinate) 25 Mg Tab.er.24h 25 Mg PO DAILY Metformin Hcl 500 Mg Tablet 500 Mg PO BIDWMEALS Magnesium Oxide 400 Mg Tablet 400 Mg PO DAILY Klor-Con Sprinkle (Potassium Chloride) 10 Meq Capsule.er 10 Meq PO DAILY Finasteride 5 Mg Tablet 5 Mg PO DAILY Duloxetine Hcl 30 Mg Capsule.dr 30 Mg PO BID B-12 (Cyanocobalamin (Vitamin B-12)) 1,000 Mcg Tablet.er 1,000 Mcg PO DAILY Clotrimazole 15 Gm Cream..g. 1 Michelle TP BID Atorvastatin Calcium 20 Mg Tablet 20 Mg PO QHS Aspirin 81 Mg Tab.chew 81 Mg PO DAILY I have reviewed the current psychotropics carefully including drug interactions. Risk benefit ratio favors no change other than as noted in my dictated progress note. Diagnosis: Problems: (1) Anxiety disorder (2) Major depressive disorder, recurrent episode MARIA ELENA SHEPHERD MD Feb 26, 2017 20:33
[2017-02-26] MEDS: oxyCODONE/APAP 10/325 1 TAB TABLET PO PRN (22:52)
--- NOTE | 2017-02-26 23:09 | HP ---
ADMIT DATE: 02/26/2017 IDENTIFYING DATA: The patient is a 77-year-old male referred back to us by his primary care physician, Dr. Rebolledo, who saw the patient at his office earlier in the day on 02/25/2017 at [facility]. The patient presented with marked symptoms of depression, ruminating about suicide or cutting his wrist and he states "I think about it all the time. I can't stop it." Reportedly, the patient's about 4 months back and symptoms of depression have worsened significantly over time. Dr. Rebolledo initiated the call for his inpatient psychiatric hospitalization. HISTORY OF PRESENT ILLNESS: The patient reportedly has been living with his stepson and they are being evicted from their home in [place]. This together with the loss of his 4 months ago, has worsened his symptoms of depression over the past several weeks. He admits to significant insomnia, ruminative thinking, obsessive, repetitive thinking wanting to kill himself. He lives with his stepson and they are being evicted from the house in [place] and he has no place to reside. No clear psychotic symptoms, homicidal ideation. No clear history of bipolar disorder. PAST PSYCHIATRIC HISTORY: The patient was here with us approximately a year or so back and left against medical advice in a day or so, even though he was initially admitted with suicidal ideation symptoms similar to what he presented at this time. At this time, prior to admission to the nursing staff had called me to screen the patient for admission. We received further information from Dr. Rebolledo's office and I had the nursing staff call and speak to the patient over the telephone explaining our unit and the fact that he left AMA last time, to make sure he was committed to treatment rather than just coming and staying for a day or two and then leaving suicidal. The patient agreed to all of this, thus prompting this hospitalization. 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 DRUG ALLERGIES: Negative. CODE STATUS: Full code. DIET: Regular. MEDICATIONS: He takes it whole. Ambulates with a walker. UA in the ER 10-25,000 Gram-negative rods, Keflex was stopped on 02/26/2017. CURRENT PSYCHOTROPICS: Cymbalta 30 mg b.i.d., Abilify 5 mg a day, trazodone 50 mg at bedtime, Ambien 5 mg at bedtime p.r.n. insomnia. FAMILY HISTORY: Noncontributory. SOCIAL HISTORY: As noted above. No alcohol or drug abuse, physical, sexual or elder abuse history is noted. Not known to be a perpetrator. He is a . MENTAL STATUS EXAMINATION: The patient is seen individually the evening of 02/26/2017. He is oriented to himself, date, situation, was aware of who the President was. He was able to do only one step serial sevens, somewhat distractable. Mood is depressed, anxious. Affect is mood congruent. Intellect average. Insight good. Judgment intact. He denies active suicidal ideation at the time I evaluated him. LABORATORY DATA: Reviewed. ASSETS: Supportive stepson. REACTION TO HOSPITALIZATION: The patient accepting of it. IMPRESSION: Major depressive disorder, recurrent, severe with suicidal ideation. 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 Rest of the above. PLAN: Admit to Geropsychiatry unit at [facility]. I will see the patient daily individually from a psychiatric standpoint. Medical followup per Dr. Dotson/Dr. Dwyer. Continue current psychotropics, observe baseline, consider increasing Cymbalta and augmentation with Wellbutrin. May need to increase trazodone for insomnia. Further adjustments per baseline assessment. MARIA ELENA SHEPHERD MD DR: AJITH/navid JOB#: [id number] / [id number]
[2017-02-27 01:09] LABS: HEMOGLOBIN A1C 7.1 % (4.8-5.6)
[2017-02-27 05:41] VITALS: BP 145/76
[2017-02-27] MEDS: CHOLECALCIFEROL (VITAMIN D3) 1,000 UNIT TABLET PO SCH ×2 (08:08→19:51)
[2017-02-27] MEDS: MAGNESIUM OXIDE 400 MG TABLET PO SCH (08:08)
[2017-02-27] MEDS: ARIPiprazole 5 MG TABLET PO SCH (08:08)
[2017-02-27] MEDS: PSYLLIUM SEED (WITH SUGAR) PACKET. PO SCH ×2 (08:08→11:30)
[2017-02-27] MEDS: metFORMIN 500 MG TABLET PO SCH ×2 (08:09→17:11)
[2017-02-27] MEDS: FINASTERIDE 5 MG TABLET PO SCH (08:10)
[2017-02-27] MEDS: MULTIVITAMIN with MINERAL TABLET. PO SCH (08:10)
[2017-02-27] MEDS: POTASSIUM CHLORIDE 10 MEQ TABLET.ER. PO SCH (08:10)
[2017-02-27] MEDS: ASPIRIN 81 MG TAB.CHEW PO SCH (08:10)
[2017-02-27] MEDS: DULoxetine HCL 30 MG CAPSULE.DR PO SCH ×2 (08:10→19:51)
[2017-02-27] MEDS: LACTOBACILLUS RHAMNOSUS GG 1 CAPSULE. PO SCH ×2 (08:10→19:50)
[2017-02-27] MEDS: CYANOCOBALAMIN (VITAMIN B-12) 1,000 MCG TABLET. PO SCH (08:10)
[2017-02-27] MEDS: METOPROLOL SUCC 24HR ER 25 MG TAB.ER.24H. PO SCH (08:11)
[2017-02-27] MEDS: POLYETHYLENE GLYCOL 3350 17 GM PACKET. PO SCH (08:12)
[2017-02-27] MEDS: CLOTRIMAZOLE 1% TOPICAL CREAM 30GM TUBE. TP SCH ×2 (08:12→09:00)
[2017-02-27] MEDS: oxyCODONE/APAP 10/325 1 TAB TABLET PO PRN ×2 (15:24→19:57)
[2017-02-27 16:18] VITALS: BP 159/86
[2017-02-27] MEDS ORDERED: CLOTRIMAZOLE 1% TOPICAL CREAM 30GM TUBE. TP PRN (17:45)
[2017-02-27] MEDS: ATORVASTATIN CALCIUM 20 MG TABLET PO SCH (19:50)
[2017-02-27] MEDS: traZODone 50 MG TABLET. PO SCH (19:51)
--- NOTE | 2017-02-27 20:08 | PDOC ---
Exam Note: Corey Note: Please also refer to the separate dictated note~for this date of service dictated separately.~Patient seen individually. Discussed the patient with Nursing staff reviewed the chart.~Reviewed interim history and current functioning. Reviewed vital signs,~Labs/ Radiology~and current medications noted below. Continue current treatment with the changes noted in the dictated addendum note Assessment: Vital Signs: Vital Signs Date Time Temp Pulse Resp B/P (MAP) Pulse Ox O2 Delivery O2 Flow Rate FiO2 02/27/17 16:18 97.1 89 20 159/86 (110) 98 02/25/17 22:20 Room Air I&O Intake and Output 02/27/17 07:00 Intake Total 1440 ml Balance 1440 ml Intake Oral 1440 ml Labs: Laboratory Tests Test 02/27/17 07:53 Glucose (Fingerstick) 153 mg/dL (70-99) H Current Medications: Meds: Current Medications Cephalexin HCl (Keflex) 500 mg 1X ONCE PO Last administered on 02/25/17at 22:10 ; Start 02/25/17 at 21:15; Stop 02/26/17 at 17:55; Status DC Cephalexin HCl (Keflex) 500 mg TID PO Last administered on 02/26/17at 20:06; Start 02/26/17 at 09:00; Stop 02/27/17 at 06:49; Status DC Oxycodone/ Acetaminophen (Percocet 5/325) 1 tab STK-MED ONCE .ROUTE ; Start at 22:04; Stop 02/25/17 at 22:05; Status DC Acetaminophen (Tylenol) 650 mg PRN Q6HRS PRN PO PAIN / TEMP; Start 02/25/17 at 23:00 Multi-Ingredient Ointment (Analgesic Bruner) 1 michelle PRN QID PRN TP MUSCLE PAIN; Start 02/25/17 at 23:00 Al Hydroxide/Mg Hydroxide (Mylanta Plus Xs) 15 ml PRN AFTMEALHC PRN PO DYSPEPSIA; Start 02/25/17 at 23:00 Magnesium Hydroxide (Milk Of Magnesia) 2,400 mg PRN QHS PRN PO CONSTIPATION Last administered on 02/26/17at 17:02; Start 02/25/17 at 23:00 Aripiprazole (Abilify) 5 mg DAILY PO Last administered on 02/27/17 08:08; Start 02/26/17 at 09:00 Duloxetine HCl (Cymbalta) 30 mg BID PO Last administered on 02/27/17 19:51; Start 02/26/17 at 09:00 Trazodone HCl (Desyrel) 75 mg QHS PO Last administered on 02/27/17at 19:51; Start 02/26/17 at 21:00 Zolpidem Tartrate (Ambien) 5 mg PRN QHS PRN PO INSOMNIA; Start 02/25/17 at 23: 00 Aspirin (Children'S Aspirin) 81 mg DAILY PO Last administered on 02/27/17 08: 10; Start 02/26/17 at 09:00 Atorvastatin Calcium (Lipitor) 20 mg QHS PO Last administered on 02/27/17 19: 50; Start 02/26/17 at 21:00 Vitamin D (Vitamin D3) 2,000 unit BID PO Last administered on 02/27/17 19:51; Start 02/26/17 at 09:00 Clotrimazole (Lotrimin) 1 michelle BID TP Last administered on 02/26/17at 08:30; Start 02/26/17 at 09:00; Stop 02/27/17 at 17:42; Status DC Finasteride (Proscar) 5 mg DAILY PO Last administered on 02/27/17at 08:10; Start 02/26/17 at 09:00 Magnesium Oxide (Magnesium Oxide) 400 mg DAILY PO Last administered on at 08:08; Start 02/26/17 at 09:00 Metformin HCl (Glucophage) 500 mg BIDWMEALS PO Last administered on 02/27/17at 17:11; Start 02/26/17 at 08:00 Metoprolol Succinate (Toprol Xl) 25 mg DAILY PO Last administered on 02/27/17at 08:11; Start 02/26/17 at 09:00 Oxycodone/ Acetaminophen (Percocet 10/325) 1 tab PRN Q4HRS PRN PO PAIN Last administered on 02/27/17 19:57; Start 02/25/17 at 23:00 Polyethylene Glycol (miraLAX) 17 gm QODAY PO Last administered on 02/27/17at 08: 12; Start 02/27/17 at 09:00 Cyanocobalamin (Vitamin B-12) 1,000 mcg DAILY PO Last administered on at 08:10; Start 02/26/17 at 09:00 Multivitamins/ Calcium (Thera-M Plus) 1 tab DAILY PO Last administered on at 08:10; Start 02/26/17 at 09:00 Potassium Chloride (Klor-Con) 10 meq DAILYWBKFT PO Last administered on at 08:10; Start 02/26/17 at 08:00 Psyllium Hydrophilic Mucilloid (Metamucil) 1 pkt BIDACBL PO Last administered on 02/27/17at 08:08; Start 02/26/17 at 07:30; Stop 02/27/17 at 17:42; Status DC Lactobacillus Rhamnosus (Culturelle) 1 cap BID PO Last administered on at 19:50; Start 02/26/17 at 21:00 Clotrimazole (Lotrimin) 1 michelle PRN BID PRN TP ATHLETE'S FOOT; Start 02/27/17 at 17:45 Psyllium Hydrophilic Mucilloid (Metamucil) 1 pkt DAILYWBKFT PO ; Start 02/28/17 at 08:00 Active Scripts Active Reported Vitamin D3 (Cholecalciferol (Vitamin D3)) 1,000 Unit Tablet 2,000 Unit PO BID Abilify (Aripiprazole) 5 Mg Tablet 5 Mg PO DAILY Ambien (Zolpidem Tartrate) 5 Mg Tablet 5 Mg PO PRN QHS PRN Benefiber (Wheat Dextrin) 1 Each Powd.pack 1 Packet PO BIDACBL Trazodone Hcl 50 Mg Tablet 75 Mg PO QHS Theragran-M Premier 50+ Caplet (Mv-Mn/Fa/Coq10/Lycopene/Lutein) 1 Each Tablet 1 Tab PO DAILY Miralax (Polyethylene Glycol 3350) 17 Gm Powd.pack 17 Gm PO QODAY Percocet 10-325 Mg Tablet (Oxycodone Hcl/Acetaminophen) 1 Each Tablet 1 Tab PO PRN Q4HRS PRN Metoprolol Succinate ( Xl ) (Metoprolol Succinate) 25 Mg Tab.er.24h 25 Mg PO DAILY Metformin Hcl 500 Mg Tablet 500 Mg PO BIDWMEALS Magnesium Oxide 400 Mg Tablet 400 Mg PO DAILY Klor-Con Sprinkle (Potassium Chloride) 10 Meq Capsule.er 10 Meq PO DAILY Finasteride 5 Mg Tablet 5 Mg PO DAILY Duloxetine Hcl 30 Mg Capsule.dr 30 Mg PO BID B-12 (Cyanocobalamin (Vitamin B-12)) 1,000 Mcg Tablet.er 1,000 Mcg PO DAILY Clotrimazole 15 Gm Cream..g. 1 Michelle TP BID Atorvastatin Calcium 20 Mg Tablet 20 Mg PO QHS Aspirin 81 Mg Tab.chew 81 Mg PO DAILY I have reviewed the current psychotropics carefully including drug interactions. Risk benefit ratio favors no change other than as noted in my dictated progress note. Diagnosis: Problems: (1) Urinary tract infection (2) Anxiety disorder (3) Major depressive disorder, recurrent episode MARIA ELENA SHEPHERD MD Feb 27, 2017 20:08
--- NOTE | 2017-02-28 04:07 | CONS ---
DATE OF CONSULTATION: 02/27/2017 REASON FOR CONSULTATION: Medical management. HISTORY OF PRESENT ILLNESS: The patient is a 77-year-old male patient who was referred to this facility by his primary care physician, Dr. Rebolledo, who saw the patient in his office earlier on 02/25/2017 at [facility]. The patient presented here with marked symptoms of depression, ruminating about suicidal, cutting his wrist and he stated "I think about it all the time, I can't stop it." Reportedly, his about 4 months back and symptoms of depression have worsened significantly over time. This patient was admitted for inpatient psychiatric stabilization. He apparently admits to significant insomnia, ruminating, obsessive, repetitive thinking of wanting to kill himself. He lives with his stepson, they are being evicted from the house in [place]. He has no place to reside. No clear psychotic symptoms. PAST MEDICAL HISTORY: Significant for hypertension, type 2 diabetes, bronchial asthma, morbid obesity, osteoarthritis, sleep apnea. He has a history of a colostomy takedown. ALLERGIES: No known drug allergies. CODE STATUS: Full code. MEDICATIONS: He is currently on following medications: He is on aripiprazole for Abilify 5 mg daily, aspirin 81 mg once a day, atorvastatin calcium 20 mg at bedtime, cholecalciferol for vitamin D3 of 2000 units twice a day, clotrimazole cream applied topically twice a day, cyanocobalamin 1000 mcg tablet once a day, duloxetine 30 mg capsule twice a day, finasteride 5 mg daily, magnesium oxide 400 mg daily, metformin 500 mg twice a day with meals, metoprolol succinate 25 mg extended release 1 tablet once a day, Theragran tablets 1 tablet once a day, oxycodone/acetaminophen 10/325 one tablet every 4 hours, polyethylene glycol 17 g daily, potassium chloride 20 mEq daily, trazodone 75 mg at bedtime, wheat dextrin for Benefiber 1 packet twice a day and Ambien 5 mg at bedtime as needed. FAMILY HISTORY: Noncontributory. SOCIAL HISTORY: He is apparently , lives with his stepson. He does not smoke or drink alcohol or use recreational drugs. PHYSICAL EXAMINATION: GENERAL: When I examined him, he was sitting comfortably in his chair in no apparent respiratory distress, slightly pale, but no jaundice, cyanosis or thyromegaly. No jugular venous distention. No limb edema. VITAL SIGNS: His heart rate was 89, blood pressure 159/86, temperature was 97.1, respiratory rate 20, and oxygen saturation was 98%. HEAD, EYES, EARS, NOSE AND THROAT: Showed normocephalic, atraumatic. NECK: Supple. HEART: Showed normal first and second heart sounds. No gallop, rub or murmur. CHEST: Clear to auscultation. No crepitation or rhonchi. ABDOMEN: Distended, soft, nontender. NEUROLOGIC: He was awake, alert, responding appropriately. Cranial nerves intact. EXTREMITIES: He moves all extremities without difficulty, ambulates with a walker. LABORATORY DATA: Showed a white cell count of 9800, hemoglobin 15.5, hematocrit 45, MCV 92, and platelet count 169,000 with normal manual differential. His chemistry showed a serum sodium 142, potassium 4.2, chloride 103, bicarbonate 31, anion gap of 8, BUN 17, creatinine 0.8, estimated GFR was 95 mL per minute, glucose 123, calcium was 9.8, magnesium was 1.9. Serum iron was 70, TIBC was 305 and percent saturation was 23%. His total bilirubin, AST, ALT, alkaline phosphatase were normal. His total protein was 8.2, albumin was 3.9. His hemoglobin A1c was 7.1% and TSH was 1.844 and thyroxine/total T4 was 89 and total T3 was 135. IMPRESSION: In summary, this is a 77-year-old male patient who was admitted with suicidal ideation that is severe, recurrent, with major depressive disorder. He has multiple medical problems including hyperlipidemia, hypertension, benign prostatic hypertrophy, type 2 diabetes. All in all, he seemed to be medically stable. All his vital signs are within acceptable range. All his lab works are within acceptable range. I would continue with all current medication. I will review all his labs and make any necessary recommendation. Thank you, Dr. Pacheco, for allowing me to participate in the care of this patient. MARTIN ROBISON MD DR: KALLIE/navdi JOB#: [id number] / [id number]
[2017-02-28] MEDS: oxyCODONE/APAP 10/325 1 TAB TABLET PO PRN ×2 (04:53→21:21)
[2017-02-28 06:16] VITALS: BP 116/74
--- NOTE | 2017-02-28 07:53 | PN ---
DATE: 02/27/2017 PSYCHIATRIC PROGRESS NOTE This note covers elements not covered in my initial note 02/27/2017. SUBJECTIVE: I met with the patient on 02/27/2017. The patient has been taking his medications, compliant with this, had a large bowel movement previous evening, slept much better after that and he stated this was the "best night" he has had for a while. We will add Surfak 240 mg a day to the Metamucil he is already using. REVIEW OF SYSTEMS: Complains of low back pain. No CV, , pulmonary, eye, ENT system symptoms on review. MENTAL STATUS EXAM: Oriented to himself and situation. Speech is coherent, abstraction fair, computation impaired, language function intact, attention span short. Mood and affect remain somewhat depressed. No suicidal or homicidal ideation. Addressed his psychosocial stressors and possibility of trying to find a new apartment. He states a friend of his visited him today, took his belongings out of the apartment he was being evicted from and stated they are trying to find him a place closer to the friend's place that the friend would help him with grocery shopping, etc. He is quite pleased with this ____. IMPRESSION: Major depressive disorder, recurrent; anxiety disorder, unspecified; cognitive disorder, unspecified. PLAN: Start Surfak 240 mg a day, increase Cymbalta from 30 mg b.i.d. to 50 mg in the morning, 30 mg in the evening. Continue Abilify, trazodone and Ambien for now. MARIA ELENA SHEPHERD MD DR: AJITH/navid JOB#: [id number] / [id number]
[2017-02-28] MEDS: LACTOBACILLUS RHAMNOSUS GG 1 CAPSULE. PO SCH ×2 (08:03→19:29)
[2017-02-28] MEDS: DULoxetine HCL 30 MG CAPSULE.DR PO SCH ×2 (08:04→19:31)
[2017-02-28] MEDS: MAGNESIUM OXIDE 400 MG TABLET PO SCH (08:04)
[2017-02-28] MEDS: ARIPiprazole 5 MG TABLET PO SCH (08:04)
[2017-02-28] MEDS: CHOLECALCIFEROL (VITAMIN D3) 1,000 UNIT TABLET PO SCH ×2 (08:04→19:31)
[2017-02-28] MEDS: FINASTERIDE 5 MG TABLET PO SCH (08:04)
[2017-02-28] MEDS: ASPIRIN 81 MG TAB.CHEW PO SCH (08:04)
[2017-02-28] MEDS: metFORMIN 500 MG TABLET PO SCH ×2 (08:04→16:55)
[2017-02-28] MEDS: CYANOCOBALAMIN (VITAMIN B-12) 1,000 MCG TABLET. PO SCH (08:04)
[2017-02-28] MEDS: MULTIVITAMIN with MINERAL TABLET. PO SCH (08:04)
[2017-02-28] MEDS: METOPROLOL SUCC 24HR ER 25 MG TAB.ER.24H. PO SCH (08:05)
[2017-02-28] MEDS: POTASSIUM CHLORIDE 10 MEQ TABLET.ER. PO SCH (08:05)
[2017-02-28] MEDS: PSYLLIUM SEED (WITH SUGAR) PACKET. PO SCH (08:07)
[2017-02-28] MEDS: DOCUSATE CALCIUM 240 MG CAPSULE PO SCH (08:07)
[2017-02-28] MEDS: DULoxetine HCL 20 MG CAPSULE.DR PO SCH (08:07)
[2017-02-28 16:03] VITALS: BP 140/78
[2017-02-28] MEDS: traZODone 50 MG TABLET. PO SCH (19:31)
[2017-02-28] MEDS: ATORVASTATIN CALCIUM 20 MG TABLET PO SCH (19:31)
--- NOTE | 2017-02-28 20:08 | PDOC ---
Exam Note: Corey Note: Please also refer to the separate dictated note~for this date of service dictated separately.~Patient seen individually. Discussed the patient with Nursing staff reviewed the chart.~Reviewed interim history and current functioning. Reviewed vital signs,~Labs/ Radiology~and current medications noted below. Continue current treatment with the changes noted in the dictated addendum note Assessment: Vital Signs: Vital Signs Date Time Temp Pulse Resp B/P (MAP) Pulse Ox O2 Delivery O2 Flow Rate FiO2 02/28/17 16:03 97.3 88 20 140/78 (98) 92 02/25/17 22:20 Room Air I&O Intake and Output 02/28/17 07:00 Intake Total 1560 ml Balance 1560 ml Intake Oral 1560 ml # Voids 1 Labs: Laboratory Tests Test 02/28/17 07:41 Glucose (Fingerstick) 147 mg/dL (70-99) H Current Medications: Meds: Current Medications Cephalexin HCl (Keflex) 500 mg 1X ONCE PO Last administered on 02/25/17at 22:10 ; Start 02/25/17 at 21:15; Stop 02/26/17 at 17:55; Status DC Cephalexin HCl (Keflex) 500 mg TID PO Last administered on 02/26/17at 20:06; Start 02/26/17 at 09:00; Stop 02/27/17 at 06:49; Status DC Oxycodone/ Acetaminophen (Percocet 5/325) 1 tab STK-MED ONCE .ROUTE ; Start at 22:04; Stop 02/25/17 at 22:05; Status DC Acetaminophen (Tylenol) 650 mg PRN Q6HRS PRN PO PAIN / TEMP; Start 02/25/17 at 23:00 Multi-Ingredient Ointment (Analgesic [place]) 1 michelle PRN QID PRN TP MUSCLE PAIN; Start 02/25/17 at 23:00 Al Hydroxide/Mg Hydroxide (Mylanta Plus Xs) 15 ml PRN AFTMEALHC PRN PO DYSPEPSIA; Start 02/25/17 at 23:00 Magnesium Hydroxide (Milk Of Magnesia) 2,400 mg PRN QHS PRN PO CONSTIPATION Last administered on 02/26/17at 17:02; Start 02/25/17 at 23:00 Aripiprazole (Abilify) 5 mg DAILY PO Last administered on 02/28/17at 08:04; Start 02/26/17 at 09:00 Duloxetine HCl (Cymbalta) 30 mg BID PO Last administered on 02/27/17at 19:51; Start 02/26/17 at 09:00; Stop 02/27/17 at 22:08; Status DC Trazodone HCl (Desyrel) 75 mg QHS PO Last administered on 02/28/17at 19:31; Start 02/26/17 at 21:00 Zolpidem Tartrate (Ambien) 5 mg PRN QHS PRN PO INSOMNIA; Start 02/25/17 at 23: 00 Aspirin (Children'S Aspirin) 81 mg DAILY PO Last administered on 02/28/17at 08: 04; Start 02/26/17 at 09:00 Atorvastatin Calcium (Lipitor) 20 mg QHS PO Last administered on 02/28/17at 19: 31; Start 02/26/17 at 21:00 Vitamin D (Vitamin D3) 2,000 unit BID PO Last administered on 02/28/17at 19:31; Start 02/26/17 at 09:00 Clotrimazole (Lotrimin) 1 michelle BID TP Last administered on 02/26/17at 08:30; Start 02/26/17 at 09:00; Stop 02/27/17 at 17:42; Status DC Finasteride (Proscar) 5 mg DAILY PO Last administered on 02/28/17at 08:04; Start 02/26/17 at 09:00 Magnesium Oxide (Magnesium Oxide) 400 mg DAILY PO Last administered on at 08:04; Start 02/26/17 at 09:00 Metformin HCl (Glucophage) 500 mg BIDWMEALS PO Last administered on 02/28/17at 16:55; Start 02/26/17 at 08:00 Metoprolol Succinate (Toprol Xl) 25 mg DAILY PO Last administered on 02/28/17at 08:05; Start 02/26/17 at 09:00 Oxycodone/ Acetaminophen (Percocet 10/325) 1 tab PRN Q4HRS PRN PO PAIN Last administered on 02/28/17at 04:53; Start 02/25/17 at 23:00 Polyethylene Glycol (miraLAX) 17 gm QODAY PO Last administered on 02/27/17at 08: 12; Start 02/27/17 at 09:00 Cyanocobalamin (Vitamin B-12) 1,000 mcg DAILY PO Last administered on at 08:04; Start 02/26/17 at 09:00 Multivitamins/ Calcium (Thera-M Plus) 1 tab DAILY PO Last administered on at 08:04; Start 02/26/17 at 09:00 Potassium Chloride (Klor-Con) 10 meq DAILYWBKFT PO Last administered on at 08:05; Start 02/26/17 at 08:00 Psyllium Hydrophilic Mucilloid (Metamucil) 1 pkt BIDACBL PO Last administered on 02/27/17at 08:08; Start 02/26/17 at 07:30; Stop 02/27/17 at 17:42; Status DC Lactobacillus Rhamnosus (Culturelle) 1 cap BID PO Last administered on at 19:29; Start 02/26/17 at 21:00 Clotrimazole (Lotrimin) 1 michelle PRN BID PRN TP ATHLETE'S FOOT; Start 02/27/17 at 17:45 Psyllium Hydrophilic Mucilloid (Metamucil) 1 pkt DAILYWBKFT PO Last administered on 02/28/17at 08:07; Start 02/28/17 at 08:00 Duloxetine HCl (Cymbalta) 30 mg HS PO Last administered on 02/28/17at 19:31; Start 02/28/17 at 21:00 Duloxetine HCl (Cymbalta) 30 mg DAILY PO Last administered on 02/28/17at 08:04; Start 02/28/17 at 09:00 Duloxetine HCl (Cymbalta) 20 mg DAILY PO Last administered on 02/28/17at 08:07; Start 02/28/17 at 09:00 Docusate Calcium (Surfak) 240 mg DAILY PO Last administered on 02/28/17at 08:07 ; Start 02/28/17 at 09:00 Active Scripts Active Reported Vitamin D3 (Cholecalciferol (Vitamin D3)) 1,000 Unit Tablet 2,000 Unit PO BID Abilify (Aripiprazole) 5 Mg Tablet 5 Mg PO DAILY Ambien (Zolpidem Tartrate) 5 Mg Tablet 5 Mg PO PRN QHS PRN Benefiber (Wheat Dextrin) 1 Each Powd.pack 1 Packet PO BIDACBL Trazodone Hcl 50 Mg Tablet 75 Mg PO QHS Theragran-M Premier 50+ Caplet (Mv-Mn/Fa/Coq10/Lycopene/Lutein) 1 Each Tablet 1 Tab PO DAILY Miralax (Polyethylene Glycol 3350) 17 Gm Powd.pack 17 Gm PO QODAY Percocet 10-325 Mg Tablet (Oxycodone Hcl/Acetaminophen) 1 Each Tablet 1 Tab PO PRN Q4HRS PRN Metoprolol Succinate ( Xl ) (Metoprolol Succinate) 25 Mg Tab.er.24h 25 Mg PO DAILY Metformin Hcl 500 Mg Tablet 500 Mg PO BIDWMEALS Magnesium Oxide 400 Mg Tablet 400 Mg PO DAILY Klor-Con Sprinkle (Potassium Chloride) 10 Meq Capsule.er 10 Meq PO DAILY Finasteride 5 Mg Tablet 5 Mg PO DAILY Duloxetine Hcl 30 Mg Capsule.dr 30 Mg PO BID B-12 (Cyanocobalamin (Vitamin B-12)) 1,000 Mcg Tablet.er 1,000 Mcg PO DAILY Clotrimazole 15 Gm Cream..g. 1 Michelle TP BID Atorvastatin Calcium 20 Mg Tablet 20 Mg PO QHS Aspirin 81 Mg Tab.chew 81 Mg PO DAILY I have reviewed the current psychotropics carefully including drug interactions. Risk benefit ratio favors no change other than as noted in my dictated progress note. Diagnosis: Problems: (1) Anxiety disorder (2) Major depressive disorder, recurrent episode MARIA ELENA SHEPHERD MD Feb 28, 2017 20:08
--- NOTE | 2017-03-01 00:36 | PN ---
DATE: 02/28/2017 NO DICTATION. MAN Shaggy SHEPHERD MD DR: Linda JOB#: [id number] / [id number]
[2017-03-01 06:17] VITALS: BP 151/86
[2017-03-01] MEDS: metFORMIN 500 MG TABLET PO SCH ×2 (09:22→16:55)
[2017-03-01] MEDS: FINASTERIDE 5 MG TABLET PO SCH (09:22)
[2017-03-01] MEDS: DOCUSATE CALCIUM 240 MG CAPSULE PO SCH (09:22)
[2017-03-01] MEDS: CHOLECALCIFEROL (VITAMIN D3) 1,000 UNIT TABLET PO SCH ×2 (09:22→19:28)
[2017-03-01] MEDS: LACTOBACILLUS RHAMNOSUS GG 1 CAPSULE. PO SCH ×2 (09:22→19:27)
[2017-03-01] MEDS: MAGNESIUM OXIDE 400 MG TABLET PO SCH (09:22)
[2017-03-01] MEDS: DULoxetine HCL 30 MG CAPSULE.DR PO SCH ×2 (09:22→19:28)
[2017-03-01] MEDS: MULTIVITAMIN with MINERAL TABLET. PO SCH (09:22)
[2017-03-01] MEDS: CYANOCOBALAMIN (VITAMIN B-12) 1,000 MCG TABLET. PO SCH (09:22)
[2017-03-01] MEDS: ASPIRIN 81 MG TAB.CHEW PO SCH (09:22)
[2017-03-01] MEDS: METOPROLOL SUCC 24HR ER 25 MG TAB.ER.24H. PO SCH (09:23)
[2017-03-01] MEDS: POTASSIUM CHLORIDE 10 MEQ TABLET.ER. PO SCH (09:23)
[2017-03-01] MEDS: DULoxetine HCL 20 MG CAPSULE.DR PO SCH (09:23)
[2017-03-01] MEDS: POLYETHYLENE GLYCOL 3350 17 GM PACKET. PO SCH (09:23)
[2017-03-01] MEDS: ARIPiprazole 5 MG TABLET PO SCH (09:23)
[2017-03-01] MEDS: PSYLLIUM SEED (WITH SUGAR) PACKET. PO SCH (09:23)
[2017-03-01] MEDS: oxyCODONE/APAP 10/325 1 TAB TABLET PO PRN ×2 (12:22→20:10)
[2017-03-01 16:19] VITALS: BP 154/87
[2017-03-01 16:37] VITALS: BP 154/87
[2017-03-01] MEDS: ATORVASTATIN CALCIUM 20 MG TABLET PO SCH (19:28)
[2017-03-01] MEDS: traZODone 50 MG TABLET. PO SCH (19:28)
--- NOTE | 2017-03-01 20:07 | PDOC ---
Exam Note: Corey Note: Please also refer to the separate dictated note~for this date of service dictated separately.~Patient seen individually. Discussed the patient with Nursing staff reviewed the chart.~Reviewed interim history and current functioning. Reviewed vital signs,~Labs/ Radiology~and current medications noted below. Continue current treatment with the changes noted in the dictated addendum note Assessment: Vital Signs: Vital Signs Date Time Temp Pulse Resp B/P (MAP) Pulse Ox O2 Delivery O2 Flow Rate FiO2 03/01/17 16:37 99.0 77 20 154/87 (109) 94 Room Air I&O Intake and Output 03/01/17 07:00 Intake Total 1200 ml Balance 1200 ml Intake Oral 1200 ml # Voids 1 Labs: Laboratory Tests Test 03/01/17 07:19 Glucose (Fingerstick) 157 mg/dL (70-99) H Current Medications: Meds: Current Medications Cephalexin HCl (Keflex) 500 mg 1X ONCE PO Last administered on 02/25/17at 22:10 ; Start 02/25/17 at 21:15; Stop 02/26/17 at 17:55; Status DC Cephalexin HCl (Keflex) 500 mg TID PO Last administered on 02/26/17at 20:06; Start 02/26/17 at 09:00; Stop 02/27/17 at 06:49; Status DC Oxycodone/ Acetaminophen (Percocet 5/325) 1 tab STK-MED ONCE .ROUTE ; Start at 22:04; Stop 02/25/17 at 22:05; Status DC Acetaminophen (Tylenol) 650 mg PRN Q6HRS PRN PO PAIN / TEMP; Start 02/25/17 at 23:00 Multi-Ingredient Ointment (Analgesic [place]) 1 michelle PRN QID PRN TP MUSCLE PAIN; Start 02/25/17 at 23:00 Al Hydroxide/Mg Hydroxide (Mylanta Plus Xs) 15 ml PRN AFTMEALHC PRN PO DYSPEPSIA; Start 02/25/17 at 23:00 Magnesium Hydroxide (Milk Of Magnesia) 2,400 mg PRN QHS PRN PO CONSTIPATION Last administered on 02/26/17at 17:02; Start 02/25/17 at 23:00 Aripiprazole (Abilify) 5 mg DAILY PO Last administered on 03/01/17at 09:23; Start 02/26/17 at 09:00 Duloxetine HCl (Cymbalta) 30 mg BID PO Last administered on 02/27/17 19:51; Start 02/26/17 at 09:00; Stop 02/27/17 at 22:08; Status DC Trazodone HCl (Desyrel) 75 mg QHS PO Last administered on 03/01/17 19:28; Start 02/26/17 at 21:00 Zolpidem Tartrate (Ambien) 5 mg PRN QHS PRN PO INSOMNIA; Start 02/25/17 at 23: 00 Aspirin (Children'S Aspirin) 81 mg DAILY PO Last administered on 03/01/17 09: 22; Start 02/26/17 at 09:00 Atorvastatin Calcium (Lipitor) 20 mg QHS PO Last administered on 03/01/17 19: 28; Start 02/26/17 at 21:00 Vitamin D (Vitamin D3) 2,000 unit BID PO Last administered on 03/01/17 19:28; Start 02/26/17 at 09:00 Clotrimazole (Lotrimin) 1 michelle BID TP Last administered on 02/26/17 08:30; Start 02/26/17 at 09:00; Stop 02/27/17 at 17:42; Status DC Finasteride (Proscar) 5 mg DAILY PO Last administered on 03/01/17 09:22; Start 02/26/17 at 09:00 Magnesium Oxide (Magnesium Oxide) 400 mg DAILY PO Last administered on 09:22; Start 02/26/17 at 09:00 Metformin HCl (Glucophage) 500 mg BIDWMEALS PO Last administered on 03/01/17at 16:55; Start 02/26/17 at 08:00 Metoprolol Succinate (Toprol Xl) 25 mg DAILY PO Last administered on 03/01/17 09:23; Start 02/26/17 at 09:00 Oxycodone/ Acetaminophen (Percocet 10/325) 1 tab PRN Q4HRS PRN PO PAIN Last administered on 03/01/17 12:22; Start 02/25/17 at 23:00 Polyethylene Glycol (miraLAX) 17 gm QODAY PO Last administered on 03/01/17 09: 23; Start 02/27/17 at 09:00 Cyanocobalamin (Vitamin B-12) 1,000 mcg DAILY PO Last administered on 09:22; Start 02/26/17 at 09:00 Multivitamins/ Calcium (Thera-M Plus) 1 tab DAILY PO Last administered on 09:22; Start 02/26/17 at 09:00 Potassium Chloride (Klor-Con) 10 meq DAILYWBKFT PO Last administered on 09:23; Start 02/26/17 at 08:00 Psyllium Hydrophilic Mucilloid (Metamucil) 1 pkt BIDACBL PO Last administered on 02/27/17at 08:08; Start 02/26/17 at 07:30; Stop 02/27/17 at 17:42; Status DC Lactobacillus Rhamnosus (Culturelle) 1 cap BID PO Last administered on at 19:27; Start 02/26/17 at 21:00 Clotrimazole (Lotrimin) 1 michelle PRN BID PRN TP ATHLETE'S FOOT; Start 02/27/17 at 17:45 Psyllium Hydrophilic Mucilloid (Metamucil) 1 pkt DAILYWBKFT PO Last administered on 03/01/17 09:23; Start 02/28/17 at 08:00 Duloxetine HCl (Cymbalta) 30 mg HS PO Last administered on 03/01/17 19:28; Start 02/28/17 at 21:00 Duloxetine HCl (Cymbalta) 30 mg DAILY PO Last administered on 03/01/17at 09:22; Start 02/28/17 at 09:00 Duloxetine HCl (Cymbalta) 20 mg DAILY PO Last administered on 03/01/17 09:23; Start 02/28/17 at 09:00 Docusate Calcium (Surfak) 240 mg DAILY PO Last administered on 03/01/17 09:22 ; Start 02/28/17 at 09:00 Active Scripts Active Reported Vitamin D3 (Cholecalciferol (Vitamin D3)) 1,000 Unit Tablet 2,000 Unit PO BID Abilify (Aripiprazole) 5 Mg Tablet 5 Mg PO DAILY Ambien (Zolpidem Tartrate) 5 Mg Tablet 5 Mg PO PRN QHS PRN Benefiber (Wheat Dextrin) 1 Each Powd.pack 1 Packet PO BIDACBL Trazodone Hcl 50 Mg Tablet 75 Mg PO QHS Theragran-M Premier 50+ Caplet (Mv-Mn/Fa/Coq10/Lycopene/Lutein) 1 Each Tablet 1 Tab PO DAILY Miralax (Polyethylene Glycol 3350) 17 Gm Powd.pack 17 Gm PO QODAY Percocet 10-325 Mg Tablet (Oxycodone Hcl/Acetaminophen) 1 Each Tablet 1 Tab PO PRN Q4HRS PRN Metoprolol Succinate ( Xl ) (Metoprolol Succinate) 25 Mg Tab.er.24h 25 Mg PO DAILY Metformin Hcl 500 Mg Tablet 500 Mg PO BIDWMEALS Magnesium Oxide 400 Mg Tablet 400 Mg PO DAILY Klor-Con Sprinkle (Potassium Chloride) 10 Meq Capsule.er 10 Meq PO DAILY Finasteride 5 Mg Tablet 5 Mg PO DAILY Duloxetine Hcl 30 Mg Capsule.dr 30 Mg PO BID B-12 (Cyanocobalamin (Vitamin B-12)) 1,000 Mcg Tablet.er 1,000 Mcg PO DAILY Clotrimazole 15 Gm Cream..g. 1 Michelle TP BID Atorvastatin Calcium 20 Mg Tablet 20 Mg PO QHS Aspirin 81 Mg Tab.chew 81 Mg PO DAILY I have reviewed the current psychotropics carefully including drug interactions. Risk benefit ratio favors no change other than as noted in my dictated progress note. Diagnosis: Problems: (1) Anxiety disorder (2) Major depressive disorder, recurrent episode (3) Cognitive and behavioral changes (4) Delusion (5) Impulse control disorder (6) Suicidal ideation MARIA ELENA SHEPHERD MD Mar 01, 2017 20:07
--- NOTE | 2017-03-02 00:37 | PN ---
DATE: 02/28/2017 This late entry, 02/28/2017, covers elements not covered in my initial note of 02/28/2017. SUBJECTIVE: I met with the patient the evening of 02/28/2017. The patient slept 7-1/4 hours previous evening. The patient has been somewhat flirty at times, but cooperative, improved affect during the day on 02/28/2017. REVIEW OF SYSTEMS: No CV, , pulmonary, eyes, ENT system symptoms on review. MENTAL STATUS EXAM: Reasonably oriented. Speech coherent, abstraction fair, computation impaired, language function intact. Mood and affect somewhat dysphoric, anxious. LABORATORY DATA: Reviewed. IMPRESSION: Major depressive disorder, recurrent, in partial remission. Rest unchanged. PLAN: Continue current psychotropics mentioned in my initial note. MAN Shaggy SHEPHERD MD DR: AJITH/navid JOB#: [id number] / [id number]
[2017-03-02 06:26] VITALS: BP 131/80
[2017-03-02 07:56] LABS: BASO # 0.1 x10^3/uL (0.0-0.2); BASO % 1 % (0-3); EOS # 0.4 x10^3/uL (0.0-0.7); EOS % 5 % (0-3); HEMATOCRIT 43.9 % (39.0-53.0); HEMOGLOBIN 15.1 g/dL (13.0-17.5); LYMPH % 28 % (24-48); MEAN CORPUSCULAR HEMOGLOBIN 31 pg (25-35); MEAN CORPUSCULAR HGB CONC 34 g/dL (31-37); MEAN CORPUSCULAR VOLUME 92 fL (79-100); MONO # 0.6 x10^3/uL (0.0-1.1); MONO % 8 % (0-9); NEUT # 4.2 x10^3uL (1.8-7.7); NEUT % 58 % (31-73); PLATELET COUNT 158 x10^3/uL (140-400); RED BLOOD COUNT 4.79 x10^6/uL (4.30-5.70); RED CELL DISTRIBUTION WIDTH 13.9 % (11.5-14.5); WHITE BLOOD COUNT 7.2 x10^3/uL (4.0-11.0)
[2017-03-02] MEDS: DULoxetine HCL 30 MG CAPSULE.DR PO SCH ×2 (08:05→19:12)
[2017-03-02] MEDS: POTASSIUM CHLORIDE 10 MEQ TABLET.ER. PO SCH (08:06)
[2017-03-02] MEDS: METOPROLOL SUCC 24HR ER 25 MG TAB.ER.24H. PO SCH (08:06)
[2017-03-02] MEDS: LACTOBACILLUS RHAMNOSUS GG 1 CAPSULE. PO SCH ×2 (08:06→19:11)
[2017-03-02] MEDS: MULTIVITAMIN with MINERAL TABLET. PO SCH (08:07)
[2017-03-02] MEDS: DOCUSATE CALCIUM 240 MG CAPSULE PO SCH (08:07)
[2017-03-02] MEDS: FINASTERIDE 5 MG TABLET PO SCH (08:07)
[2017-03-02] MEDS: CHOLECALCIFEROL (VITAMIN D3) 1,000 UNIT TABLET PO SCH ×2 (08:07→19:13)
[2017-03-02] MEDS: MAGNESIUM OXIDE 400 MG TABLET PO SCH (08:07)
[2017-03-02] MEDS: CYANOCOBALAMIN (VITAMIN B-12) 1,000 MCG TABLET. PO SCH (08:07)
[2017-03-02] MEDS: ASPIRIN 81 MG TAB.CHEW PO SCH (08:07)
[2017-03-02] MEDS: metFORMIN 500 MG TABLET PO SCH ×2 (08:07→16:31)
[2017-03-02] MEDS: ARIPiprazole 5 MG TABLET PO SCH (08:07)
[2017-03-02] MEDS: DULoxetine HCL 20 MG CAPSULE.DR PO SCH (08:07)
[2017-03-02] MEDS: PSYLLIUM SEED (WITH SUGAR) PACKET. PO SCH (08:08)
[2017-03-02 08:20] LABS: ALBUMIN 3.4 g/dL (3.4-5.0); ALBUMIN/GLOBULIN RATIO 0.8 (1.0-1.7); CALCIUM 9.8 mg/dL (8.5-10.1); CREATININE 0.9 mg/dL (0.7-1.3); GFR 81.6; MAGNESIUM 1.9 mg/dL (1.8-2.4); POTASSIUM 4.4 mmol/L (3.5-5.1); TOTAL BILIRUBIN 0.8 mg/dL (0.2-1.0); TOTAL PROTEIN 7.5 g/dL (6.4-8.2)
[2017-03-02] MEDS: oxyCODONE/APAP 10/325 1 TAB TABLET PO PRN (10:44)
[2017-03-02 15:53] VITALS: BP 119/68
[2017-03-02] MEDS: ATORVASTATIN CALCIUM 20 MG TABLET PO SCH (19:12)
[2017-03-02] MEDS: traZODone 50 MG TABLET. PO SCH (19:12)
--- NOTE | 2017-03-02 20:09 | PDOC ---
Exam Note: Corey Note: Please also refer to the separate dictated note~for this date of service dictated separately.~Patient seen individually. Discussed the patient with Nursing staff reviewed the chart.~Reviewed interim history and current functioning. Reviewed vital signs,~Labs/ Radiology~and current medications noted below. Continue current treatment with the changes noted in the dictated addendum note Assessment: Vital Signs: Vital Signs Date Time Temp Pulse Resp B/P (MAP) Pulse Ox O2 Delivery O2 Flow Rate FiO2 03/02/17 15:53 97.1 80 16 119/68 (85) 92 03/01/17 16:37 Room Air I&O Intake and Output 03/02/17 07:00 Intake Total 1200 ml Balance 1200 ml Intake Oral 1200 ml Labs: Laboratory Tests Test 03/02/17 07:06 03/02/17 07:47 White Blood Count 7.2 x10^3/uL (4.0-11.0) Red Blood Count 4.79 x10^6/uL (4.30-5.70) Hemoglobin 15.1 g/dL (13.0-17.5) Hematocrit 43.9 % (39.0-53.0) Mean Corpuscular Volume 92 fL (79-100) Mean Corpuscular Hemoglobin 31 pg (25-35) Mean Corpuscular Hemoglobin Concent 34 g/dL (31-37) Red Cell Distribution Width 13.9 % (11.5-14.5) Platelet Count 158 x10^3/uL (140-400) Neutrophils (%) (Auto) 58 % (31-73) Lymphocytes (%) (Auto) 28 % (24-48) Monocytes (%) (Auto) 8 % (0-9) Eosinophils (%) (Auto) 5 % (0-3) H Basophils (%) (Auto) 1 % (0-3) Neutrophils # (Auto) 4.2 x10^3uL (1.8-7.7) Lymphocytes # (Auto) 2.0 x10^3/uL (1.0-4.8) Monocytes # (Auto) 0.6 x10^3/uL (0.0-1.1) Eosinophils # (Auto) 0.4 x10^3/uL (0.0-0.7) Basophils # (Auto) 0.1 x10^3/uL (0.0-0.2) Sodium Level 142 mmol/L (136-145) Potassium Level 4.4 mmol/L (3.5-5.1) Chloride Level 104 mmol/L (98-107) Carbon Dioxide Level 31 mmol/L (21-32) Anion Gap 7 (6-14) Blood Urea Nitrogen 16 mg/dL (8-26) Creatinine 0.9 mg/dL (0.7-1.3) Estimated GFR (Cockcroft-Gault) 81.6 BUN/Creatinine Ratio 18 (6-20) Glucose Level 143 mg/dL (70-99) H Calcium Level 9.8 mg/dL (8.5-10.1) Magnesium Level 1.9 mg/dL (1.8-2.4) Total Bilirubin 0.8 mg/dL (0.2-1.0) Aspartate Amino Transferase (AST) 33 U/L (15-37) Alanine Aminotransferase (ALT) 45 U/L (16-63) Alkaline Phosphatase 69 U/L (46-116) Total Protein 7.5 g/dL (6.4-8.2) Albumin 3.4 g/dL (3.4-5.0) Albumin/Globulin Ratio 0.8 (1.0-1.7) L Glucose (Fingerstick) 146 mg/dL (70-99) H Current Medications: Meds: Current Medications Cephalexin HCl (Keflex) 500 mg 1X ONCE PO Last administered on 02/25/17at 22:10 ; Start 02/25/17 at 21:15; Stop 02/26/17 at 17:55; Status DC Cephalexin HCl (Keflex) 500 mg TID PO Last administered on 02/26/17at 20:06; Start 02/26/17 at 09:00; Stop 02/27/17 at 06:49; Status DC Oxycodone/ Acetaminophen (Percocet 5/325) 1 tab STK-MED ONCE .ROUTE ; Start at 22:04; Stop 02/25/17 at 22:05; Status DC Acetaminophen (Tylenol) 650 mg PRN Q6HRS PRN PO PAIN / TEMP; Start 02/25/17 at 23:00 Multi-Ingredient Ointment (Analgesic [place]) 1 michelle PRN QID PRN TP MUSCLE PAIN; Start 02/25/17 at 23:00 Al Hydroxide/Mg Hydroxide (Mylanta Plus Xs) 15 ml PRN AFTMEALHC PRN PO DYSPEPSIA; Start 02/25/17 at 23:00 Magnesium Hydroxide (Milk Of Magnesia) 2,400 mg PRN QHS PRN PO CONSTIPATION Last administered on 02/26/17at 17:02; Start 02/25/17 at 23:00 Aripiprazole (Abilify) 5 mg DAILY PO Last administered on 03/02/17at 08:07; Start 02/26/17 at 09:00 Duloxetine HCl (Cymbalta) 30 mg BID PO Last administered on 02/27/17at 19:51; Start 02/26/17 at 09:00; Stop 02/27/17 at 22:08; Status DC Trazodone HCl (Desyrel) 75 mg QHS PO Last administered on 03/02/17at 19:12; Start 02/26/17 at 21:00 Zolpidem Tartrate (Ambien) 5 mg PRN QHS PRN PO INSOMNIA; Start 02/25/17 at 23: 00 Aspirin (Children'S Aspirin) 81 mg DAILY PO Last administered on 03/02/17at 08: 07; Start 02/26/17 at 09:00 Atorvastatin Calcium (Lipitor) 20 mg QHS PO Last administered on 03/02/17at 19: 12; Start 02/26/17 at 21:00 Vitamin D (Vitamin D3) 2,000 unit BID PO Last administered on 03/02/17at 19:13; Start 02/26/17 at 09:00 Clotrimazole (Lotrimin) 1 michelle BID TP Last administered on 02/26/17at 08:30; Start 02/26/17 at 09:00; Stop 02/27/17 at 17:42; Status DC Finasteride (Proscar) 5 mg DAILY PO Last administered on 03/02/17at 08:07; Start 02/26/17 at 09:00 Magnesium Oxide (Magnesium Oxide) 400 mg DAILY PO Last administered on at 08:07; Start 02/26/17 at 09:00 Metformin HCl (Glucophage) 500 mg BIDWMEALS PO Last administered on 03/02/17at 16:31; Start 02/26/17 at 08:00 Metoprolol Succinate (Toprol Xl) 25 mg DAILY PO Last administered on 03/02/17 08:06; Start 02/26/17 at 09:00 Oxycodone/ Acetaminophen (Percocet 10/325) 1 tab PRN Q4HRS PRN PO PAIN Last administered on 03/02/17 10:44; Start 02/25/17 at 23:00 Polyethylene Glycol (miraLAX) 17 gm QODAY PO Last administered on 03/01/17at 09: 23; Start 02/27/17 at 09:00 Cyanocobalamin (Vitamin B-12) 1,000 mcg DAILY PO Last administered on 08:07; Start 02/26/17 at 09:00 Multivitamins/ Calcium (Thera-M Plus) 1 tab DAILY PO Last administered on 08:07; Start 02/26/17 at 09:00 Potassium Chloride (Klor-Con) 10 meq DAILYWBKFT PO Last administered on 08:06; Start 02/26/17 at 08:00 Psyllium Hydrophilic Mucilloid (Metamucil) 1 pkt BIDACBL PO Last administered on 02/27/17at 08:08; Start 02/26/17 at 07:30; Stop 02/27/17 at 17:42; Status DC Lactobacillus Rhamnosus (Culturelle) 1 cap BID PO Last administered on at 19:11; Start 02/26/17 at 21:00 Clotrimazole (Lotrimin) 1 michelle PRN BID PRN TP ATHLETE'S FOOT; Start 02/27/17 at 17:45 Psyllium Hydrophilic Mucilloid (Metamucil) 1 pkt DAILYWBKFT PO Last administered on 03/02/17at 08:08; Start 02/28/17 at 08:00 Duloxetine HCl (Cymbalta) 30 mg HS PO Last administered on 03/02/17at 19:12; Start 02/28/17 at 21:00 Duloxetine HCl (Cymbalta) 30 mg DAILY PO Last administered on 03/02/17at 08:05; Start 02/28/17 at 09:00 Duloxetine HCl (Cymbalta) 20 mg DAILY PO Last administered on 03/02/17at 08:07; Start 02/28/17 at 09:00 Docusate Calcium (Surfak) 240 mg DAILY PO Last administered on 03/02/17at 08:07 ; Start 02/28/17 at 09:00 Active Scripts Active Reported Vitamin D3 (Cholecalciferol (Vitamin D3)) 1,000 Unit Tablet 2,000 Unit PO BID Abilify (Aripiprazole) 5 Mg Tablet 5 Mg PO DAILY Ambien (Zolpidem Tartrate) 5 Mg Tablet 5 Mg PO PRN QHS PRN Benefiber (Wheat Dextrin) 1 Each Powd.pack 1 Packet PO BIDACBL Trazodone Hcl 50 Mg Tablet 75 Mg PO QHS Theragran-M Premier 50+ Caplet (Mv-Mn/Fa/Coq10/Lycopene/Lutein) 1 Each Tablet 1 Tab PO DAILY Miralax (Polyethylene Glycol 3350) 17 Gm Powd.pack 17 Gm PO QODAY Percocet 10-325 Mg Tablet (Oxycodone Hcl/Acetaminophen) 1 Each Tablet 1 Tab PO PRN Q4HRS PRN Metoprolol Succinate ( Xl ) (Metoprolol Succinate) 25 Mg Tab.er.24h 25 Mg PO DAILY Metformin Hcl 500 Mg Tablet 500 Mg PO BIDWMEALS Magnesium Oxide 400 Mg Tablet 400 Mg PO DAILY Klor-Con Sprinkle (Potassium Chloride) 10 Meq Capsule.er 10 Meq PO DAILY Finasteride 5 Mg Tablet 5 Mg PO DAILY Duloxetine Hcl 30 Mg Capsule.dr 30 Mg PO BID B-12 (Cyanocobalamin (Vitamin B-12)) 1,000 Mcg Tablet.er 1,000 Mcg PO DAILY Clotrimazole 15 Gm Cream..g. 1 Michelle TP BID Atorvastatin Calcium 20 Mg Tablet 20 Mg PO QHS Aspirin 81 Mg Tab.chew 81 Mg PO DAILY I have reviewed the current psychotropics carefully including drug interactions. Risk benefit ratio favors no change other than as noted in my dictated progress note. Diagnosis: Problems: (1) Anxiety disorder (2) Major depressive disorder, recurrent episode (3) Cognitive and behavioral changes (4) Delusion (5) Impulse control disorder (6) Suicidal ideation MARIA ELENA SHEPHERD MD Mar 02, 2017 20:09
[2017-03-03] MEDS: oxyCODONE/APAP 10/325 1 TAB TABLET PO PRN ×2 (01:28→10:18)
--- NOTE | 2017-03-03 01:29 | PN ---
DATE: 03/01/2017 PSYCHIATRIC PROGRESS NOTE This is a late entry 03/01/2017 covers elements not covered in my initial note 03/01/2017. SUBJECTIVE: I met with the patient evening of 03/01/2017. The patient slept 5-1/2 hours previous evening, still depressed. Denies suicidal ideation, compliant with medications, gets along well with his roommate. REVIEW OF SYSTEMS: No CV, , pulmonary, eye, ENT system symptoms on review. MENTAL STATUS EXAM: Reasonably oriented. Speech coherent, abstraction fair, computation impaired, language function intact, attention span short. Mood and affect still depressed, but showing improvement. LABORATORY DATA: Reviewed. IMPRESSION: Major depressive disorder in partial remission. Rest unchanged. PLAN: Continue psychotropics mentioned in my initial note. MAN Shaggy SHEPHERD MD DR: AJITH/navid JOB#: [id number] / [id number]
[2017-03-03 05:57] VITALS: BP 136/66
[2017-03-03] MEDS: DOCUSATE CALCIUM 240 MG CAPSULE PO SCH (07:51)
[2017-03-03] MEDS: ASPIRIN 81 MG TAB.CHEW PO SCH (07:51)
[2017-03-03] MEDS: MAGNESIUM OXIDE 400 MG TABLET PO SCH (07:51)
[2017-03-03] MEDS: MULTIVITAMIN with MINERAL TABLET. PO SCH (07:51)
[2017-03-03] MEDS: DULoxetine HCL 20 MG CAPSULE.DR PO SCH (07:52)
[2017-03-03] MEDS: DULoxetine HCL 30 MG CAPSULE.DR PO SCH ×2 (07:52→20:11)
[2017-03-03] MEDS: METOPROLOL SUCC 24HR ER 25 MG TAB.ER.24H. PO SCH (07:52)
[2017-03-03] MEDS: metFORMIN 500 MG TABLET PO SCH ×2 (07:52→16:08)
[2017-03-03] MEDS: FINASTERIDE 5 MG TABLET PO SCH (07:52)
[2017-03-03] MEDS: CHOLECALCIFEROL (VITAMIN D3) 1,000 UNIT TABLET PO SCH ×2 (07:52→20:11)
[2017-03-03] MEDS: LACTOBACILLUS RHAMNOSUS GG 1 CAPSULE. PO SCH ×2 (07:53→20:11)
[2017-03-03] MEDS: POTASSIUM CHLORIDE 10 MEQ TABLET.ER. PO SCH (07:53)
[2017-03-03] MEDS: ARIPiprazole 5 MG TABLET PO SCH (07:53)
[2017-03-03] MEDS: CYANOCOBALAMIN (VITAMIN B-12) 1,000 MCG TABLET. PO SCH (07:53)
[2017-03-03] MEDS: PSYLLIUM SEED (WITH SUGAR) PACKET. PO SCH (07:53)
[2017-03-03] MEDS: POLYETHYLENE GLYCOL 3350 17 GM PACKET. PO SCH (08:40)
[2017-03-03 16:00] VITALS: BP 142/84
--- NOTE | 2017-03-03 19:56 | PDOC ---
Exam Note: Corey Note: Please also refer to the separate dictated note~for this date of service dictated separately.~Patient seen individually. Discussed the patient with Nursing staff reviewed the chart.~Reviewed interim history and current functioning. Reviewed vital signs,~Labs/ Radiology~and current medications noted below. Continue current treatment with the changes noted in the dictated addendum note Assessment: Vital Signs: Vital Signs Date Time Temp Pulse Resp B/P (MAP) Pulse Ox O2 Delivery O2 Flow Rate FiO2 03/03/17 16:00 96.5 69 16 142/84 (103) 94 03/01/17 16:37 Room Air I&O Intake and Output 03/03/17 07:00 Intake Total 1320 ml Balance 1320 ml Intake Oral 1320 ml Labs: Laboratory Tests Test 03/03/17 07:14 Glucose (Fingerstick) 130 mg/dL (70-99) H Current Medications: Meds: Current Medications Cephalexin HCl (Keflex) 500 mg 1X ONCE PO Last administered on 02/25/17at 22:10 ; Start 02/25/17 at 21:15; Stop 02/26/17 at 17:55; Status DC Cephalexin HCl (Keflex) 500 mg TID PO Last administered on 02/26/17at 20:06; Start 02/26/17 at 09:00; Stop 02/27/17 at 06:49; Status DC Oxycodone/ Acetaminophen (Percocet 5/325) 1 tab STK-MED ONCE .ROUTE ; Start at 22:04; Stop 02/25/17 at 22:05; Status DC Acetaminophen (Tylenol) 650 mg PRN Q6HRS PRN PO PAIN / TEMP; Start 02/25/17 at 23:00 Multi-Ingredient Ointment (Analgesic [place]) 1 michelle PRN QID PRN TP MUSCLE PAIN; Start 02/25/17 at 23:00 Al Hydroxide/Mg Hydroxide (Mylanta Plus Xs) 15 ml PRN AFTMEALHC PRN PO DYSPEPSIA; Start 02/25/17 at 23:00 Magnesium Hydroxide (Milk Of Magnesia) 2,400 mg PRN QHS PRN PO CONSTIPATION Last administered on 02/26/17at 17:02; Start 02/25/17 at 23:00 Aripiprazole (Abilify) 5 mg DAILY PO Last administered on 03/03/17 07:53; Start 02/26/17 at 09:00 Duloxetine HCl (Cymbalta) 30 mg BID PO Last administered on 02/27/17 19:51; Start 02/26/17 at 09:00; Stop 02/27/17 at 22:08; Status DC Trazodone HCl (Desyrel) 75 mg QHS PO Last administered on 03/02/17 19:12; Start 02/26/17 at 21:00 Zolpidem Tartrate (Ambien) 5 mg PRN QHS PRN PO INSOMNIA; Start 02/25/17 at 23: 00 Aspirin (Children'S Aspirin) 81 mg DAILY PO Last administered on 03/03/17 07: 51; Start 02/26/17 at 09:00 Atorvastatin Calcium (Lipitor) 20 mg QHS PO Last administered on 03/02/17 19: 12; Start 02/26/17 at 21:00 Vitamin D (Vitamin D3) 2,000 unit BID PO Last administered on 03/03/17 07:52; Start 02/26/17 at 09:00 Clotrimazole (Lotrimin) 1 michelle BID TP Last administered on 02/26/17 08:30; Start 02/26/17 at 09:00; Stop 02/27/17 at 17:42; Status DC Finasteride (Proscar) 5 mg DAILY PO Last administered on 03/03/17 07:52; Start 02/26/17 at 09:00 Magnesium Oxide (Magnesium Oxide) 400 mg DAILY PO Last administered on 07:51; Start 02/26/17 at 09:00 Metformin HCl (Glucophage) 500 mg BIDWMEALS PO Last administered on 03/03/17 16:08; Start 02/26/17 at 08:00 Metoprolol Succinate (Toprol Xl) 25 mg DAILY PO Last administered on 03/03/17 07:52; Start 02/26/17 at 09:00 Oxycodone/ Acetaminophen (Percocet 10/325) 1 tab PRN Q4HRS PRN PO PAIN Last administered on 03/03/17 10:18; Start 02/25/17 at 23:00 Polyethylene Glycol (miraLAX) 17 gm QODAY PO Last administered on 03/03/17 08: 40; Start 02/27/17 at 09:00 Cyanocobalamin (Vitamin B-12) 1,000 mcg DAILY PO Last administered on 07:53; Start 02/26/17 at 09:00 Multivitamins/ Calcium (Thera-M Plus) 1 tab DAILY PO Last administered on 07:51; Start 02/26/17 at 09:00 Potassium Chloride (Klor-Con) 10 meq DAILYWBKFT PO Last administered on 07:53; Start 02/26/17 at 08:00 Psyllium Hydrophilic Mucilloid (Metamucil) 1 pkt BIDACBL PO Last administered on 02/27/17 08:08; Start 02/26/17 at 07:30; Stop 02/27/17 at 17:42; Status DC Lactobacillus Rhamnosus (Culturelle) 1 cap BID PO Last administered on 07:53; Start 02/26/17 at 21:00 Clotrimazole (Lotrimin) 1 michelle PRN BID PRN TP ATHLETE'S FOOT; Start 02/27/17 at 17:45 Psyllium Hydrophilic Mucilloid (Metamucil) 1 pkt DAILYWBKFT PO Last administered on 03/03/17 07:53; Start 02/28/17 at 08:00 Duloxetine HCl (Cymbalta) 30 mg HS PO Last administered on 03/02/17at 19:12; Start 02/28/17 at 21:00 Duloxetine HCl (Cymbalta) 30 mg DAILY PO Last administered on 03/03/17 07:52; Start 02/28/17 at 09:00 Duloxetine HCl (Cymbalta) 20 mg DAILY PO Last administered on 03/03/17 07:52; Start 02/28/17 at 09:00 Docusate Calcium (Surfak) 240 mg DAILY PO Last administered on 03/03/17 07:51 ; Start 02/28/17 at 09:00 Active Scripts Active Reported Vitamin D3 (Cholecalciferol (Vitamin D3)) 1,000 Unit Tablet 2,000 Unit PO BID Abilify (Aripiprazole) 5 Mg Tablet 5 Mg PO DAILY Ambien (Zolpidem Tartrate) 5 Mg Tablet 5 Mg PO PRN QHS PRN Benefiber (Wheat Dextrin) 1 Each Powd.pack 1 Packet PO BIDACBL Trazodone Hcl 50 Mg Tablet 75 Mg PO QHS Theragran-M Premier 50+ Caplet (Mv-Mn/Fa/Coq10/Lycopene/Lutein) 1 Each Tablet 1 Tab PO DAILY Miralax (Polyethylene Glycol 3350) 17 Gm Powd.pack 17 Gm PO QODAY Percocet 10-325 Mg Tablet (Oxycodone Hcl/Acetaminophen) 1 Each Tablet 1 Tab PO PRN Q4HRS PRN Metoprolol Succinate ( Xl ) (Metoprolol Succinate) 25 Mg Tab.er.24h 25 Mg PO DAILY Metformin Hcl 500 Mg Tablet 500 Mg PO BIDWMEALS Magnesium Oxide 400 Mg Tablet 400 Mg PO DAILY Klor-Con Sprinkle (Potassium Chloride) 10 Meq Capsule.er 10 Meq PO DAILY Finasteride 5 Mg Tablet 5 Mg PO DAILY Duloxetine Hcl 30 Mg Capsule.dr 30 Mg PO BID B-12 (Cyanocobalamin (Vitamin B-12)) 1,000 Mcg Tablet.er 1,000 Mcg PO DAILY Clotrimazole 15 Gm Cream..g. 1 Michelle TP BID Atorvastatin Calcium 20 Mg Tablet 20 Mg PO QHS Aspirin 81 Mg Tab.chew 81 Mg PO DAILY I have reviewed the current psychotropics carefully including drug interactions. Risk benefit ratio favors no change other than as noted in my dictated progress note. Diagnosis: Problems: (1) Anxiety disorder (2) Major depressive disorder, recurrent episode (3) Cognitive and behavioral changes (4) Delusion (5) Impulse control disorder (6) Suicidal ideation MARIA ELENA SHEPHERD MD Mar 03, 2017 19:55
[2017-03-03] MEDS: traZODone 50 MG TABLET. PO SCH (20:11)
[2017-03-03] MEDS: ATORVASTATIN CALCIUM 20 MG TABLET PO SCH (20:11)
[2017-03-04] MEDS: oxyCODONE/APAP 10/325 1 TAB TABLET PO PRN ×2 (02:45→14:03)
[2017-03-04 06:04] VITALS: BP 106/67
[2017-03-04] MEDS: POTASSIUM CHLORIDE 10 MEQ TABLET.ER. PO SCH (08:10)
[2017-03-04] MEDS: CYANOCOBALAMIN (VITAMIN B-12) 1,000 MCG TABLET. PO SCH (08:10)
[2017-03-04] MEDS: metFORMIN 500 MG TABLET PO SCH ×2 (08:10→18:29)
[2017-03-04] MEDS: DOCUSATE CALCIUM 240 MG CAPSULE PO SCH (08:10)
[2017-03-04] MEDS: PSYLLIUM SEED (WITH SUGAR) PACKET. PO SCH (08:10)
[2017-03-04] MEDS: DULoxetine HCL 20 MG CAPSULE.DR PO SCH (08:10)
[2017-03-04] MEDS: MULTIVITAMIN with MINERAL TABLET. PO SCH (08:10)
[2017-03-04] MEDS: CHOLECALCIFEROL (VITAMIN D3) 1,000 UNIT TABLET PO SCH ×2 (08:11→20:51)
[2017-03-04] MEDS: DULoxetine HCL 30 MG CAPSULE.DR PO SCH ×2 (08:11→20:50)
[2017-03-04] MEDS: LACTOBACILLUS RHAMNOSUS GG 1 CAPSULE. PO SCH ×2 (08:11→20:50)
[2017-03-04] MEDS: MAGNESIUM OXIDE 400 MG TABLET PO SCH (08:11)
[2017-03-04] MEDS: ASPIRIN 81 MG TAB.CHEW PO SCH (08:11)
[2017-03-04] MEDS: ARIPiprazole 5 MG TABLET PO SCH (08:11)
[2017-03-04] MEDS: FINASTERIDE 5 MG TABLET PO SCH (08:14)
[2017-03-04] MEDS: METOPROLOL SUCC 24HR ER 25 MG TAB.ER.24H. PO SCH (08:15)
[2017-03-04 16:26] VITALS: BP 142/84
[2017-03-04] MEDS: ATORVASTATIN CALCIUM 20 MG TABLET PO SCH (20:50)
[2017-03-04] MEDS: traZODone 50 MG TABLET. PO SCH (20:50)
[2017-03-05] MEDS: oxyCODONE/APAP 10/325 1 TAB TABLET PO PRN ×3 (00:04→20:00)
[2017-03-05 05:58] VITALS: BP 128/68
[2017-03-05] MEDS: metFORMIN 500 MG TABLET PO SCH ×2 (08:00→17:03)
[2017-03-05] MEDS: POTASSIUM CHLORIDE 10 MEQ TABLET.ER. PO SCH (08:00)
[2017-03-05] MEDS: PSYLLIUM SEED (WITH SUGAR) PACKET. PO SCH (08:01)
[2017-03-05] MEDS: LACTOBACILLUS RHAMNOSUS GG 1 CAPSULE. PO SCH ×2 (08:02→20:01)
[2017-03-05] MEDS: DULoxetine HCL 20 MG CAPSULE.DR PO SCH (08:02)
[2017-03-05] MEDS: ARIPiprazole 5 MG TABLET PO SCH (08:02)
[2017-03-05] MEDS: ASPIRIN 81 MG TAB.CHEW PO SCH (08:02)
[2017-03-05] MEDS: POLYETHYLENE GLYCOL 3350 17 GM PACKET. PO SCH (08:03)
[2017-03-05] MEDS: DULoxetine HCL 30 MG CAPSULE.DR PO SCH ×2 (08:03→20:01)
[2017-03-05] MEDS: MAGNESIUM OXIDE 400 MG TABLET PO SCH (08:03)
[2017-03-05] MEDS: FINASTERIDE 5 MG TABLET PO SCH (08:04)
[2017-03-05] MEDS: MULTIVITAMIN with MINERAL TABLET. PO SCH (08:04)
[2017-03-05] MEDS: DOCUSATE CALCIUM 240 MG CAPSULE PO SCH (08:04)
[2017-03-05] MEDS: METOPROLOL SUCC 24HR ER 25 MG TAB.ER.24H. PO SCH (08:05)
[2017-03-05] MEDS: CHOLECALCIFEROL (VITAMIN D3) 1,000 UNIT TABLET PO SCH ×2 (08:05→20:01)
[2017-03-05] MEDS: CYANOCOBALAMIN (VITAMIN B-12) 1,000 MCG TABLET. PO SCH (08:05)
--- NOTE | 2017-03-05 08:12 | PN ---
DATE: 03/02/2017 PSYCHIATRIC PROGRESS NOTE This is a late entry 03/02/2017 covers elements not covered in my initial note 03/02/2017. SUBJECTIVE: I met with the patient evening of 03/02/2017. The patient has been calm, laughing at times, complained of some pain in the morning, otherwise cooperative during the day, received Percocet, but then refused to take anymore because he said he had an "addictive personality." No suicidal ideation. His friend brought him some dinner and he was very appreciative of the friend support and for the friend trying to find accommodation for him as well post-discharge. REVIEW OF SYSTEMS: Positive for some chronic pain, impaired ambulation with walker. No CV, , pulmonary, eye system symptoms on review. MENTAL STATUS EXAM: Reasonably oriented. Speech coherent, abstraction fair, computation impaired, language function intact. Mood and affect still depressed, showing improvement. LABORATORY DATA: Reviewed. IMPRESSION: Major depressive disorder with psychotic features in partial remission. PLAN: Continue current psychotropics mentioned in my initial note. MAN Shaggy SHEPHERD MD DR: AJITH/navid JOB#: [id number] / [id number]
--- NOTE | 2017-03-05 08:43 | PN ---
DATE: 03/03/2017 PSYCHIATRIC PROGRESS NOTE This is a late entry 03/03/2017 covers elements not covered in my initial note 03/03/2017. SUBJECTIVE: The patient was staffed at treatment team meeting with the entire team morning of 03/03/2017 and patient attended this conference. Reviewed his history, diagnosis, medications, discharge aftercare plans at length. 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 No CV, , pulmonary, eye system symptoms on review. MENTAL STATUS EXAM: Reasonably oriented. Speech is coherent, abstraction fair, computation impaired, language function intact, attention span short. Mood and affect still depressed, but showing improvement. No active suicidal ideation. LABORATORY DATA: Reviewed. IMPRESSION: Major depressive disorder in partial remission. PLAN: Continue current psychotropics, Cymbalta is at current dosage, Abilify, trazodone, Ambyuridia p.r.n. MARIA ELENA SHEPHERD MD DR: AJITH/navid JOB#: [id number] / [id number]
--- NOTE | 2017-03-05 09:43 | PDOC ---
Exam Note: Corey Note: Please also refer to the separate dictated note~for this date of service dictated separately.~Patient seen individually. Discussed the patient with Nursing staff reviewed the chart.~Reviewed interim history and current functioning. Reviewed vital signs,~Labs/ Radiology~and current medications noted below. Continue current treatment with the changes noted in the dictated addendum note. This is a late entry for date of service March 04, 2017 Assessment: Vital Signs: VS - Last 72 Hours, by Label Date Time Temp Pulse Resp B/P (MAP) Pulse Ox O2 Delivery O2 Flow Rate FiO2 03/05/17 08:05 77 128/68 03/05/17 05:58 97.6 77 18 128/68 (88) 97 03/04/17 16:26 97.2 79 18 142/84 (103) 94 Room Air 03/04/17 08:15 72 106/67 03/04/17 06:04 97.2 72 18 106/67 (80) 94 03/03/17 16:00 96.5 69 16 142/84 (103) 94 03/03/17 07:52 75 136/66 03/03/17 05:57 98.3 75 18 136/66 (89) 94 03/02/17 15:53 97.1 80 16 119/68 (85) 92 Vital Signs Date Time Temp Pulse Resp B/P (MAP) Pulse Ox O2 Delivery O2 Flow Rate FiO2 03/05/17 08:05 77 128/68 03/05/17 05:58 97.6 18 97 03/04/17 16:26 Room Air I&O Intake and Output 03/05/17 07:00 Intake Total 1200 ml Balance 1200 ml Intake Oral 1200 ml Labs: Laboratory Tests Test 03/05/17 07:28 Glucose (Fingerstick) 117 mg/dL (70-99) H Current Medications: Meds: Current Medications Cephalexin HCl (Keflex) 500 mg 1X ONCE PO Last administered on 02/25/17at 22:10 ; Start 02/25/17 at 21:15; Stop 02/26/17 at 17:55; Status DC Cephalexin HCl (Keflex) 500 mg TID PO Last administered on 02/26/17at 20:06; Start 02/26/17 at 09:00; Stop 02/27/17 at 06:49; Status DC Oxycodone/ Acetaminophen (Percocet 5/325) 1 tab STK-MED ONCE .ROUTE ; Start at 22:04; Stop 02/25/17 at 22:05; Status DC Acetaminophen (Tylenol) 650 mg PRN Q6HRS PRN PO PAIN / TEMP; Start 02/25/17 at 23:00 Multi-Ingredient Ointment (Analgesic [place]) 1 michelle PRN QID PRN TP MUSCLE PAIN; Start 02/25/17 at 23:00 Al Hydroxide/Mg Hydroxide (Mylanta Plus Xs) 15 ml PRN AFTMEALHC PRN PO DYSPEPSIA; Start 02/25/17 at 23:00 Magnesium Hydroxide (Milk Of Magnesia) 2,400 mg PRN QHS PRN PO CONSTIPATION Last administered on 02/26/17at 17:02; Start 02/25/17 at 23:00 Aripiprazole (Abilify) 5 mg DAILY PO Last administered on 03/05/17at 08:02; Start 02/26/17 at 09:00 Duloxetine HCl (Cymbalta) 30 mg BID PO Last administered on 02/27/17at 19:51; Start 02/26/17 at 09:00; Stop 02/27/17 at 22:08; Status DC Trazodone HCl (Desyrel) 75 mg QHS PO Last administered on 03/04/17at 20:50; Start 02/26/17 at 21:00 Zolpidem Tartrate (Ambien) 5 mg PRN QHS PRN PO INSOMNIA; Start 02/25/17 at 23: 00 Aspirin (Children'S Aspirin) 81 mg DAILY PO Last administered on 03/05/17at 08: 02; Start 02/26/17 at 09:00 Atorvastatin Calcium (Lipitor) 20 mg QHS PO Last administered on 03/04/17at 20: 50; Start 02/26/17 at 21:00 Vitamin D (Vitamin D3) 2,000 unit BID PO Last administered on 03/05/17at 08:05; Start 02/26/17 at 09:00 Clotrimazole (Lotrimin) 1 michelle BID TP Last administered on 02/26/17at 08:30; Start 02/26/17 at 09:00; Stop 02/27/17 at 17:42; Status DC Finasteride (Proscar) 5 mg DAILY PO Last administered on 03/05/17 08:04; Start 02/26/17 at 09:00 Magnesium Oxide (Magnesium Oxide) 400 mg DAILY PO Last administered on at 08:03; Start 02/26/17 at 09:00 Metformin HCl (Glucophage) 500 mg BIDWMEALS PO Last administered on 03/05/17 08:00; Start 02/26/17 at 08:00 Metoprolol Succinate (Toprol Xl) 25 mg DAILY PO Last administered on 03/05/17 08:05; Start 02/26/17 at 09:00 Oxycodone/ Acetaminophen (Percocet 10/325) 1 tab PRN Q4HRS PRN PO PAIN Last administered on 03/05/17 00:04; Start 02/25/17 at 23:00 Polyethylene Glycol (miraLAX) 17 gm QODAY PO Last administered on 03/05/17 08: 03; Start 02/27/17 at 09:00 Cyanocobalamin (Vitamin B-12) 1,000 mcg DAILY PO Last administered on 08:05; Start 02/26/17 at 09:00 Multivitamins/ Calcium (Thera-M Plus) 1 tab DAILY PO Last administered on 08:04; Start 02/26/17 at 09:00 Potassium Chloride (Klor-Con) 10 meq DAILYWBKFT PO Last administered on 08:00; Start 02/26/17 at 08:00 Psyllium Hydrophilic Mucilloid (Metamucil) 1 pkt BIDACBL PO Last administered on 02/27/17at 08:08; Start 02/26/17 at 07:30; Stop 02/27/17 at 17:42; Status DC Lactobacillus Rhamnosus (Culturelle) 1 cap BID PO Last administered on at 08:02; Start 02/26/17 at 21:00 Clotrimazole (Lotrimin) 1 michelle PRN BID PRN TP ATHLETE'S FOOT; Start 02/27/17 at 17:45 Psyllium Hydrophilic Mucilloid (Metamucil) 1 pkt DAILYWBKFT PO Last administered on 03/05/17at 08:01; Start 02/28/17 at 08:00 Duloxetine HCl (Cymbalta) 30 mg HS PO Last administered on 03/04/17at 20:50; Start 02/28/17 at 21:00 Duloxetine HCl (Cymbalta) 30 mg DAILY PO Last administered on 03/05/17at 08:03; Start 02/28/17 at 09:00 Duloxetine HCl (Cymbalta) 20 mg DAILY PO Last administered on 03/05/17at 08:02; Start 02/28/17 at 09:00 Docusate Calcium (Surfak) 240 mg DAILY PO Last administered on 03/05/17at 08:04 ; Start 02/28/17 at 09:00 Active Scripts Active Reported Vitamin D3 (Cholecalciferol (Vitamin D3)) 1,000 Unit Tablet 2,000 Unit PO BID Abilify (Aripiprazole) 5 Mg Tablet 5 Mg PO DAILY Ambien (Zolpidem Tartrate) 5 Mg Tablet 5 Mg PO PRN QHS PRN Benefiber (Wheat Dextrin) 1 Each Powd.pack 1 Packet PO BIDACBL Trazodone Hcl 50 Mg Tablet 75 Mg PO QHS Theragran-M Premier 50+ Caplet (Mv-Mn/Fa/Coq10/Lycopene/Lutein) 1 Each Tablet 1 Tab PO DAILY Miralax (Polyethylene Glycol 3350) 17 Gm Powd.pack 17 Gm PO QODAY Percocet 10-325 Mg Tablet (Oxycodone Hcl/Acetaminophen) 1 Each Tablet 1 Tab PO PRN Q4HRS PRN Metoprolol Succinate ( Xl ) (Metoprolol Succinate) 25 Mg Tab.er.24h 25 Mg PO DAILY Metformin Hcl 500 Mg Tablet 500 Mg PO BIDWMEALS Magnesium Oxide 400 Mg Tablet 400 Mg PO DAILY Klor-Con Sprinkle (Potassium Chloride) 10 Meq Capsule.er 10 Meq PO DAILY Finasteride 5 Mg Tablet 5 Mg PO DAILY Duloxetine Hcl 30 Mg Capsule.dr 30 Mg PO BID B-12 (Cyanocobalamin (Vitamin B-12)) 1,000 Mcg Tablet.er 1,000 Mcg PO DAILY Clotrimazole 15 Gm Cream..g. 1 Michelle TP BID Atorvastatin Calcium 20 Mg Tablet 20 Mg PO QHS Aspirin 81 Mg Tab.chew 81 Mg PO DAILY I have reviewed the current psychotropics carefully including drug interactions. Risk benefit ratio favors no change other than as noted in my dictated progress note. Diagnosis: Problems: (1) Anxiety disorder (2) Major depressive disorder, recurrent episode (3) Cognitive and behavioral changes (4) Delusion (5) Impulse control disorder (6) Suicidal ideation MARIA ELENA SHEPHERD MD Mar 05, 2017 09:43
[2017-03-05 16:13] VITALS: BP 103/62
[2017-03-05] MEDS: traZODone 50 MG TABLET. PO SCH (20:01)
[2017-03-05] MEDS: ATORVASTATIN CALCIUM 20 MG TABLET PO SCH (20:01)
--- NOTE | 2017-03-05 22:18 | PDOC ---
Exam Note: Corey Note: Please also refer to the separate dictated note~for this date of service dictated separately.~Patient seen individually. Discussed the patient with Nursing staff reviewed the chart.~Reviewed interim history and current functioning. Reviewed vital signs,~Labs/ Radiology~and current medications noted below. Continue current treatment with the changes noted in the dictated addendum note Assessment: Vital Signs: Vital Signs Date Time Temp Pulse Resp B/P (MAP) Pulse Ox O2 Delivery O2 Flow Rate FiO2 03/05/17 16:13 97.8 77 16 103/62 (76) 94 03/04/17 16:26 Room Air I&O Intake and Output 03/05/17 07:00 Intake Total 1200 ml Balance 1200 ml Intake Oral 1200 ml Labs: Laboratory Tests Test 03/05/17 07:28 Glucose (Fingerstick) 117 mg/dL (70-99) H Current Medications: Meds: Current Medications Cephalexin HCl (Keflex) 500 mg 1X ONCE PO Last administered on 02/25/17at 22:10 ; Start 02/25/17 at 21:15; Stop 02/26/17 at 17:55; Status DC Cephalexin HCl (Keflex) 500 mg TID PO Last administered on 02/26/17at 20:06; Start 02/26/17 at 09:00; Stop 02/27/17 at 06:49; Status DC Oxycodone/ Acetaminophen (Percocet 5/325) 1 tab STK-MED ONCE .ROUTE ; Start at 22:04; Stop 02/25/17 at 22:05; Status DC Acetaminophen (Tylenol) 650 mg PRN Q6HRS PRN PO PAIN / TEMP; Start 02/25/17 at 23:00 Multi-Ingredient Ointment (Analgesic [place]) 1 michelle PRN QID PRN TP MUSCLE PAIN; Start 02/25/17 at 23:00 Al Hydroxide/Mg Hydroxide (Mylanta Plus Xs) 15 ml PRN AFTMEALHC PRN PO DYSPEPSIA; Start 02/25/17 at 23:00 Magnesium Hydroxide (Milk Of Magnesia) 2,400 mg PRN QHS PRN PO CONSTIPATION Last administered on 02/26/17at 17:02; Start 02/25/17 at 23:00 Aripiprazole (Abilify) 5 mg DAILY PO Last administered on 03/05/17 08:02; Start 02/26/17 at 09:00 Duloxetine HCl (Cymbalta) 30 mg BID PO Last administered on 02/27/17at 19:51; Start 02/26/17 at 09:00; Stop 02/27/17 at 22:08; Status DC Trazodone HCl (Desyrel) 75 mg QHS PO Last administered on 03/05/17 20:01; Start 02/26/17 at 21:00 Zolpidem Tartrate (Ambien) 5 mg PRN QHS PRN PO INSOMNIA; Start 02/25/17 at 23: 00 Aspirin (Children'S Aspirin) 81 mg DAILY PO Last administered on 03/05/17 08: 02; Start 02/26/17 at 09:00 Atorvastatin Calcium (Lipitor) 20 mg QHS PO Last administered on 03/05/17 20: 01; Start 02/26/17 at 21:00 Vitamin D (Vitamin D3) 2,000 unit BID PO Last administered on 03/05/17 20:01; Start 02/26/17 at 09:00 Clotrimazole (Lotrimin) 1 michelle BID TP Last administered on 02/26/17 08:30; Start 02/26/17 at 09:00; Stop 02/27/17 at 17:42; Status DC Finasteride (Proscar) 5 mg DAILY PO Last administered on 03/05/17at 08:04; Start 02/26/17 at 09:00 Magnesium Oxide (Magnesium Oxide) 400 mg DAILY PO Last administered on 08:03; Start 02/26/17 at 09:00 Metformin HCl (Glucophage) 500 mg BIDWMEALS PO Last administered on 03/05/17 17:03; Start 02/26/17 at 08:00 Metoprolol Succinate (Toprol Xl) 25 mg DAILY PO Last administered on 03/05/17 08:05; Start 02/26/17 at 09:00 Oxycodone/ Acetaminophen (Percocet 10/325) 1 tab PRN Q4HRS PRN PO PAIN Last administered on 03/05/17 20:00; Start 02/25/17 at 23:00 Polyethylene Glycol (miraLAX) 17 gm QODAY PO Last administered on 03/05/17 08: 03; Start 02/27/17 at 09:00 Cyanocobalamin (Vitamin B-12) 1,000 mcg DAILY PO Last administered on 08:05; Start 02/26/17 at 09:00 Multivitamins/ Calcium (Thera-M Plus) 1 tab DAILY PO Last administered on 08:04; Start 02/26/17 at 09:00 Potassium Chloride (Klor-Con) 10 meq DAILYWBKFT PO Last administered on 08:00; Start 02/26/17 at 08:00 Psyllium Hydrophilic Mucilloid (Metamucil) 1 pkt BIDACBL PO Last administered on 02/27/17 08:08; Start 02/26/17 at 07:30; Stop 02/27/17 at 17:42; Status DC Lactobacillus Rhamnosus (Culturelle) 1 cap BID PO Last administered on 20:01; Start 02/26/17 at 21:00 Clotrimazole (Lotrimin) 1 michelle PRN BID PRN TP ATHLETE'S FOOT; Start 02/27/17 at 17:45 Psyllium Hydrophilic Mucilloid (Metamucil) 1 pkt DAILYWBKFT PO Last administered on 03/05/17at 08:01; Start 02/28/17 at 08:00 Duloxetine HCl (Cymbalta) 30 mg HS PO Last administered on 03/05/17 20:01; Start 02/28/17 at 21:00 Duloxetine HCl (Cymbalta) 30 mg DAILY PO Last administered on 03/05/17 08:03; Start 02/28/17 at 09:00 Duloxetine HCl (Cymbalta) 20 mg DAILY PO Last administered on 03/05/17 08:02; Start 02/28/17 at 09:00 Docusate Calcium (Surfak) 240 mg DAILY PO Last administered on 03/05/17 08:04 ; Start 02/28/17 at 09:00 Active Scripts Active Reported Vitamin D3 (Cholecalciferol (Vitamin D3)) 1,000 Unit Tablet 2,000 Unit PO BID Abilify (Aripiprazole) 5 Mg Tablet 5 Mg PO DAILY Ambien (Zolpidem Tartrate) 5 Mg Tablet 5 Mg PO PRN QHS PRN Benefiber (Wheat Dextrin) 1 Each Powd.pack 1 Packet PO BIDACBL Trazodone Hcl 50 Mg Tablet 75 Mg PO QHS Theragran-M Premier 50+ Caplet (Mv-Mn/Fa/Coq10/Lycopene/Lutein) 1 Each Tablet 1 Tab PO DAILY Miralax (Polyethylene Glycol 3350) 17 Gm Powd.pack 17 Gm PO QODAY Percocet 10-325 Mg Tablet (Oxycodone Hcl/Acetaminophen) 1 Each Tablet 1 Tab PO PRN Q4HRS PRN Metoprolol Succinate ( Xl ) (Metoprolol Succinate) 25 Mg Tab.er.24h 25 Mg PO DAILY Metformin Hcl 500 Mg Tablet 500 Mg PO BIDWMEALS Magnesium Oxide 400 Mg Tablet 400 Mg PO DAILY Klor-Con Sprinkle (Potassium Chloride) 10 Meq Capsule.er 10 Meq PO DAILY Finasteride 5 Mg Tablet 5 Mg PO DAILY Duloxetine Hcl 30 Mg Capsule.dr 30 Mg PO BID B-12 (Cyanocobalamin (Vitamin B-12)) 1,000 Mcg Tablet.er 1,000 Mcg PO DAILY Clotrimazole 15 Gm Cream..g. 1 Michelle TP BID Atorvastatin Calcium 20 Mg Tablet 20 Mg PO QHS Aspirin 81 Mg Tab.chew 81 Mg PO DAILY I have reviewed the current psychotropics carefully including drug interactions. Risk benefit ratio favors no change other than as noted in my dictated progress note. Diagnosis: Problems: (1) Anxiety disorder (2) Major depressive disorder, recurrent episode (3) Cognitive and behavioral changes (4) Delusion (5) Impulse control disorder (6) Suicidal ideation MARIA ELENA SHEPHERD MD Mar 05, 2017 22:18
[2017-03-06] MEDS: oxyCODONE/APAP 10/325 1 TAB TABLET PO PRN ×2 (06:03→20:27)
[2017-03-06 06:14] VITALS: BP 129/76
[2017-03-06] MEDS: metFORMIN 500 MG TABLET PO SCH ×2 (08:09→17:10)
[2017-03-06] MEDS: PSYLLIUM SEED (WITH SUGAR) PACKET. PO SCH (08:09)
[2017-03-06] MEDS: POTASSIUM CHLORIDE 10 MEQ TABLET.ER. PO SCH (08:09)
[2017-03-06] MEDS: ASPIRIN 81 MG TAB.CHEW PO SCH (08:09)
[2017-03-06] MEDS: ARIPiprazole 5 MG TABLET PO SCH (08:09)
[2017-03-06] MEDS: LACTOBACILLUS RHAMNOSUS GG 1 CAPSULE. PO SCH ×2 (08:10→20:27)
[2017-03-06] MEDS: DULoxetine HCL 30 MG CAPSULE.DR PO SCH ×2 (08:10→20:28)
[2017-03-06] MEDS: DULoxetine HCL 20 MG CAPSULE.DR PO SCH (08:10)
[2017-03-06] MEDS: MAGNESIUM OXIDE 400 MG TABLET PO SCH (08:10)
[2017-03-06] MEDS: FINASTERIDE 5 MG TABLET PO SCH (08:13)
[2017-03-06] MEDS: MULTIVITAMIN with MINERAL TABLET. PO SCH (08:13)
[2017-03-06] MEDS: DOCUSATE CALCIUM 240 MG CAPSULE PO SCH (08:13)
[2017-03-06] MEDS: CYANOCOBALAMIN (VITAMIN B-12) 1,000 MCG TABLET. PO SCH (08:17)
[2017-03-06] MEDS: CHOLECALCIFEROL (VITAMIN D3) 1,000 UNIT TABLET PO SCH ×2 (08:18→20:27)
[2017-03-06 16:15] VITALS: BP 130/83
--- NOTE | 2017-03-06 20:07 | PDOC ---
Exam Note: Corey Note: Please also refer to the separate dictated note~for this date of service dictated separately.~Patient seen individually. Discussed the patient with Nursing staff reviewed the chart.~Reviewed interim history and current functioning. Reviewed vital signs,~Labs/ Radiology~and current medications noted below. Continue current treatment with the changes noted in the dictated addendum note Assessment: Vital Signs: Vital Signs Date Time Temp Pulse Resp B/P (MAP) Pulse Ox O2 Delivery O2 Flow Rate FiO2 03/06/17 16:15 97.7 79 20 130/83 (99) 96 Room Air I&O Intake and Output 03/06/17 07:00 Intake Total 2120 ml Balance 2120 ml Intake Oral 2120 ml Labs: Laboratory Tests Test 03/06/17 07:20 Glucose (Fingerstick) 138 mg/dL (70-99) H Current Medications: Meds: Current Medications Cephalexin HCl (Keflex) 500 mg 1X ONCE PO Last administered on 02/25/17at 22:10 ; Start 02/25/17 at 21:15; Stop 02/26/17 at 17:55; Status DC Cephalexin HCl (Keflex) 500 mg TID PO Last administered on 02/26/17at 20:06; Start 02/26/17 at 09:00; Stop 02/27/17 at 06:49; Status DC Oxycodone/ Acetaminophen (Percocet 5/325) 1 tab STK-MED ONCE .ROUTE ; Start at 22:04; Stop 02/25/17 at 22:05; Status DC Acetaminophen (Tylenol) 650 mg PRN Q6HRS PRN PO PAIN / TEMP; Start 02/25/17 at 23:00 Multi-Ingredient Ointment (Analgesic [place]) 1 michelle PRN QID PRN TP MUSCLE PAIN; Start 02/25/17 at 23:00 Al Hydroxide/Mg Hydroxide (Mylanta Plus Xs) 15 ml PRN AFTMEALHC PRN PO DYSPEPSIA; Start 02/25/17 at 23:00 Magnesium Hydroxide (Milk Of Magnesia) 2,400 mg PRN QHS PRN PO CONSTIPATION Last administered on 02/26/17at 17:02; Start 02/25/17 at 23:00 Aripiprazole (Abilify) 5 mg DAILY PO Last administered on 03/06/17at 08:09; Start 02/26/17 at 09:00 Duloxetine HCl (Cymbalta) 30 mg BID PO Last administered on 02/27/17at 19:51; Start 02/26/17 at 09:00; Stop 02/27/17 at 22:08; Status DC Trazodone HCl (Desyrel) 75 mg QHS PO Last administered on 03/05/17at 20:01; Start 02/26/17 at 21:00 Zolpidem Tartrate (Ambien) 5 mg PRN QHS PRN PO INSOMNIA; Start 02/25/17 at 23: 00 Aspirin (Children'S Aspirin) 81 mg DAILY PO Last administered on 03/06/17at 08: 09; Start 02/26/17 at 09:00 Atorvastatin Calcium (Lipitor) 20 mg QHS PO Last administered on 03/05/17at 20: 01; Start 02/26/17 at 21:00 Vitamin D (Vitamin D3) 2,000 unit BID PO Last administered on 03/06/17at 08:18; Start 02/26/17 at 09:00 Clotrimazole (Lotrimin) 1 michelle BID TP Last administered on 02/26/17at 08:30; Start 02/26/17 at 09:00; Stop 02/27/17 at 17:42; Status DC Finasteride (Proscar) 5 mg DAILY PO Last administered on 03/06/17at 08:13; Start 02/26/17 at 09:00 Magnesium Oxide (Magnesium Oxide) 400 mg DAILY PO Last administered on at 08:10; Start 02/26/17 at 09:00 Metformin HCl (Glucophage) 500 mg BIDWMEALS PO Last administered on 03/06/17at 17:10; Start 02/26/17 at 08:00 Metoprolol Succinate (Toprol Xl) 25 mg DAILY PO Last administered on 03/05/17at 08:05; Start 02/26/17 at 09:00; Stop 03/06/17 at 10:13; Status DC Oxycodone/ Acetaminophen (Percocet 10/325) 1 tab PRN Q4HRS PRN PO PAIN Last administered on 03/06/17at 06:03; Start 02/25/17 at 23:00 Polyethylene Glycol (miraLAX) 17 gm QODAY PO Last administered on 03/05/17 08: 03; Start 02/27/17 at 09:00 Cyanocobalamin (Vitamin B-12) 1,000 mcg DAILY PO Last administered on at 08:17; Start 02/26/17 at 09:00 Multivitamins/ Calcium (Thera-M Plus) 1 tab DAILY PO Last administered on 08:13; Start 02/26/17 at 09:00 Potassium Chloride (Klor-Con) 10 meq DAILYWBKFT PO Last administered on at 08:09; Start 02/26/17 at 08:00 Psyllium Hydrophilic Mucilloid (Metamucil) 1 pkt BIDACBL PO Last administered on 02/27/17at 08:08; Start 02/26/17 at 07:30; Stop 02/27/17 at 17:42; Status DC Lactobacillus Rhamnosus (Culturelle) 1 cap BID PO Last administered on at 08:10; Start 02/26/17 at 21:00 Clotrimazole (Lotrimin) 1 michelle PRN BID PRN TP ATHLETE'S FOOT; Start 02/27/17 at 17:45 Psyllium Hydrophilic Mucilloid (Metamucil) 1 pkt DAILYWBKFT PO Last administered on 03/06/17at 08:09; Start 02/28/17 at 08:00 Duloxetine HCl (Cymbalta) 30 mg HS PO Last administered on 03/05/17at 20:01; Start 02/28/17 at 21:00 Duloxetine HCl (Cymbalta) 30 mg DAILY PO Last administered on 03/06/17 08:10; Start 02/28/17 at 09:00 Duloxetine HCl (Cymbalta) 20 mg DAILY PO Last administered on 03/06/17at 08:10; Start 02/28/17 at 09:00 Docusate Calcium (Surfak) 240 mg DAILY PO Last administered on 03/06/17at 08:13 ; Start 02/28/17 at 09:00 Metoprolol Succinate (Toprol Xl) 12.5 mg DAILY PO ; Start 03/07/17 at 09:00 Active Scripts Active Reported Vitamin D3 (Cholecalciferol (Vitamin D3)) 1,000 Unit Tablet 2,000 Unit PO BID Abilify (Aripiprazole) 5 Mg Tablet 5 Mg PO DAILY Ambien (Zolpidem Tartrate) 5 Mg Tablet 5 Mg PO PRN QHS PRN Benefiber (Wheat Dextrin) 1 Each Powd.pack 1 Packet PO BIDACBL Trazodone Hcl 50 Mg Tablet 75 Mg PO QHS Theragran-M Premier 50+ Caplet (Mv-Mn/Fa/Coq10/Lycopene/Lutein) 1 Each Tablet 1 Tab PO DAILY Miralax (Polyethylene Glycol 3350) 17 Gm Powd.pack 17 Gm PO QODAY Percocet 10-325 Mg Tablet (Oxycodone Hcl/Acetaminophen) 1 Each Tablet 1 Tab PO PRN Q4HRS PRN Metoprolol Succinate ( Xl ) (Metoprolol Succinate) 25 Mg Tab.er.24h 25 Mg PO DAILY Metformin Hcl 500 Mg Tablet 500 Mg PO BIDWMEALS Magnesium Oxide 400 Mg Tablet 400 Mg PO DAILY Klor-Con Sprinkle (Potassium Chloride) 10 Meq Capsule.er 10 Meq PO DAILY Finasteride 5 Mg Tablet 5 Mg PO DAILY Duloxetine Hcl 30 Mg Capsule.dr 30 Mg PO BID B-12 (Cyanocobalamin (Vitamin B-12)) 1,000 Mcg Tablet.er 1,000 Mcg PO DAILY Clotrimazole 15 Gm Cream..g. 1 Michelle TP BID Atorvastatin Calcium 20 Mg Tablet 20 Mg PO QHS Aspirin 81 Mg Tab.chew 81 Mg PO DAILY I have reviewed the current psychotropics carefully including drug interactions. Risk benefit ratio favors no change other than as noted in my dictated progress note. Diagnosis: Problems: (1) Anxiety disorder (2) Major depressive disorder, recurrent episode (3) Cognitive and behavioral changes (4) Delusion (5) Impulse control disorder (6) Suicidal ideation MARIA ELENA SHEPHERD MD Mar 06, 2017 20:07
[2017-03-06] MEDS: ATORVASTATIN CALCIUM 20 MG TABLET PO SCH (20:28)
[2017-03-06] MEDS: traZODone 50 MG TABLET. PO SCH (20:28)
--- NOTE | 2017-03-06 20:33 | PN ---
DATE: 03/04/2017 PSYCHIATRIC PROGRESS NOTE This is a late entry of 03/04/2017 covers elements not covered in my initial note of 03/04/2017. I met with the patient in the evening of 03/04/2017. The patient has been fairly cooperative on the unit, still somewhat depressed. Denies suicidal ideation. REVIEW OF SYSTEMS: Ambulation impaired. No CV, , pulmonary, eye system symptoms on review. MENTAL STATUS EXAM: Oriented to himself and situation. Speech coherent, abstraction fair, computation impaired, language function intact. Mood and affect showing improvement. He is cognitively reasonably intact. LABORATORY DATA: Reviewed. IMPRESSION: Major depressive disorder, in partial remission. PLAN: Continue current psychotropics mentioned in my initial note. MAN Shaggy SHEPHERD MD DR: AJITH/navid JOB#: [id number] / [id number]
--- NOTE | 2017-03-06 21:05 | PN ---
DATE: 03/05/2017 This note covers elements not covered in my initial note 03/05/2017. Met with the patient individually. Overall, the patient somewhat withdrawn, depressed, but improved. REVIEW OF SYSTEM: No CV, , pulmonary, eye system symptoms on review. MENTAL STATUS EXAM: Reasonably oriented. Speech coherent, abstraction fair, computation impaired, language function intact. Mood and affect still somewhat dysphoric, depressed. The patient minimizes. No suicidal or homicidal ideation. LABORATORY DATA: Reviewed. IMPRESSION: Major depressive disorder, recurrent. Rest unchanged. PLAN: Continue current psychotropics. Adjust further as clinically indicated. MAN Shgagy SHEPHERD MD DR: AJITH/navid JOB#: [id number] / [id number]
[2017-03-07 06:03] VITALS: BP 153/84
[2017-03-07] MEDS: POTASSIUM CHLORIDE 10 MEQ TABLET.ER. PO SCH (07:56)
[2017-03-07] MEDS: ARIPiprazole 5 MG TABLET PO SCH (07:56)
[2017-03-07] MEDS: metFORMIN 500 MG TABLET PO SCH ×2 (07:56→17:15)
[2017-03-07] MEDS: PSYLLIUM SEED (WITH SUGAR) PACKET. PO SCH (07:56)
[2017-03-07] MEDS: DULoxetine HCL 20 MG CAPSULE.DR PO SCH (07:57)
[2017-03-07] MEDS: LACTOBACILLUS RHAMNOSUS GG 1 CAPSULE. PO SCH ×2 (07:57→19:53)
[2017-03-07] MEDS: ASPIRIN 81 MG TAB.CHEW PO SCH (07:57)
[2017-03-07] MEDS: DULoxetine HCL 30 MG CAPSULE.DR PO SCH ×2 (07:57→19:52)
[2017-03-07] MEDS: DOCUSATE CALCIUM 240 MG CAPSULE PO SCH (07:58)
[2017-03-07] MEDS: CYANOCOBALAMIN (VITAMIN B-12) 1,000 MCG TABLET. PO SCH (07:58)
[2017-03-07] MEDS: MULTIVITAMIN with MINERAL TABLET. PO SCH (07:58)
[2017-03-07] MEDS: CHOLECALCIFEROL (VITAMIN D3) 1,000 UNIT TABLET PO SCH ×2 (07:58→19:52)
[2017-03-07] MEDS: FINASTERIDE 5 MG TABLET PO SCH (07:58)
[2017-03-07] MEDS: MAGNESIUM OXIDE 400 MG TABLET PO SCH (07:58)
[2017-03-07] MEDS: POLYETHYLENE GLYCOL 3350 17 GM PACKET. PO SCH (08:00)
[2017-03-07] MEDS: METOPROLOL SUCC 24HR ER 25 MG TAB.ER.24H. PO SCH (08:01)
[2017-03-07] MEDS: oxyCODONE/APAP 10/325 1 TAB TABLET PO PRN ×2 (12:47→20:11)
[2017-03-07 16:00] VITALS: BP 146/90
[2017-03-07] MEDS: ATORVASTATIN CALCIUM 20 MG TABLET PO SCH (19:52)
[2017-03-07] MEDS: traZODone 50 MG TABLET. PO SCH (19:52)
--- NOTE | 2017-03-07 20:05 | PDOC ---
Exam Note: Corey Note: Please also refer to the separate dictated note~for this date of service dictated separately.~Patient seen individually. Discussed the patient with Nursing staff reviewed the chart.~Reviewed interim history and current functioning. Reviewed vital signs,~Labs/ Radiology~and current medications noted below. Continue current treatment with the changes noted in the dictated addendum note Assessment: Vital Signs: Vital Signs Date Time Temp Pulse Resp B/P (MAP) Pulse Ox O2 Delivery O2 Flow Rate FiO2 03/07/17 16:00 97.3 72 20 146/90 (108) 94 03/06/17 16:15 Room Air I&O Intake and Output 03/07/17 07:00 Intake Total 1860 ml Balance 1860 ml Intake Oral 1860 ml # Voids 1 Labs: Laboratory Tests Test 03/07/17 07:14 Glucose (Fingerstick) 140 mg/dL (70-99) H Current Medications: Meds: Current Medications Cephalexin HCl (Keflex) 500 mg 1X ONCE PO Last administered on 02/25/17at 22:10 ; Start 02/25/17 at 21:15; Stop 02/26/17 at 17:55; Status DC Cephalexin HCl (Keflex) 500 mg TID PO Last administered on 02/26/17at 20:06; Start 02/26/17 at 09:00; Stop 02/27/17 at 06:49; Status DC Oxycodone/ Acetaminophen (Percocet 5/325) 1 tab STK-MED ONCE .ROUTE ; Start at 22:04; Stop 02/25/17 at 22:05; Status DC Acetaminophen (Tylenol) 650 mg PRN Q6HRS PRN PO PAIN / TEMP; Start 02/25/17 at 23:00 Multi-Ingredient Ointment (Analgesic [place]) 1 michelle PRN QID PRN TP MUSCLE PAIN; Start 02/25/17 at 23:00 Al Hydroxide/Mg Hydroxide (Mylanta Plus Xs) 15 ml PRN AFTMEALHC PRN PO DYSPEPSIA; Start 02/25/17 at 23:00 Magnesium Hydroxide (Milk Of Magnesia) 2,400 mg PRN QHS PRN PO CONSTIPATION Last administered on 02/26/17at 17:02; Start 02/25/17 at 23:00 Aripiprazole (Abilify) 5 mg DAILY PO Last administered on 03/07/17 07:56; Start 02/26/17 at 09:00 Duloxetine HCl (Cymbalta) 30 mg BID PO Last administered on 02/27/17at 19:51; Start 02/26/17 at 09:00; Stop 02/27/17 at 22:08; Status DC Trazodone HCl (Desyrel) 75 mg QHS PO Last administered on 03/07/17 19:52; Start 02/26/17 at 21:00 Zolpidem Tartrate (Ambien) 5 mg PRN QHS PRN PO INSOMNIA; Start 02/25/17 at 23: 00 Aspirin (Children'S Aspirin) 81 mg DAILY PO Last administered on 03/07/17 07: 57; Start 02/26/17 at 09:00 Atorvastatin Calcium (Lipitor) 20 mg QHS PO Last administered on 03/07/17 19: 52; Start 02/26/17 at 21:00 Vitamin D (Vitamin D3) 2,000 unit BID PO Last administered on 03/07/17 19:52; Start 02/26/17 at 09:00 Clotrimazole (Lotrimin) 1 michelle BID TP Last administered on 02/26/17 08:30; Start 02/26/17 at 09:00; Stop 02/27/17 at 17:42; Status DC Finasteride (Proscar) 5 mg DAILY PO Last administered on 03/07/17 07:58; Start 02/26/17 at 09:00 Magnesium Oxide (Magnesium Oxide) 400 mg DAILY PO Last administered on at 07:58; Start 02/26/17 at 09:00 Metformin HCl (Glucophage) 500 mg BIDWMEALS PO Last administered on 03/07/17 17:15; Start 02/26/17 at 08:00 Metoprolol Succinate (Toprol Xl) 25 mg DAILY PO Last administered on 03/05/17at 08:05; Start 02/26/17 at 09:00; Stop 03/06/17 at 10:13; Status DC Oxycodone/ Acetaminophen (Percocet 10/325) 1 tab PRN Q4HRS PRN PO PAIN Last administered on 03/07/17at 12:47; Start 02/25/17 at 23:00 Polyethylene Glycol (miraLAX) 17 gm QODAY PO Last administered on 03/07/17 08: 00; Start 02/27/17 at 09:00 Cyanocobalamin (Vitamin B-12) 1,000 mcg DAILY PO Last administered on 07:58; Start 02/26/17 at 09:00 Multivitamins/ Calcium (Thera-M Plus) 1 tab DAILY PO Last administered on 07:58; Start 02/26/17 at 09:00 Potassium Chloride (Klor-Con) 10 meq DAILYWBKFT PO Last administered on 07:56; Start 02/26/17 at 08:00 Psyllium Hydrophilic Mucilloid (Metamucil) 1 pkt BIDACBL PO Last administered on 02/27/17at 08:08; Start 02/26/17 at 07:30; Stop 02/27/17 at 17:42; Status DC Lactobacillus Rhamnosus (Culturelle) 1 cap BID PO Last administered on at 19:53; Start 02/26/17 at 21:00 Clotrimazole (Lotrimin) 1 michelle PRN BID PRN TP ATHLETE'S FOOT; Start 02/27/17 at 17:45 Psyllium Hydrophilic Mucilloid (Metamucil) 1 pkt DAILYWBKFT PO Last administered on 03/07/17 07:56; Start 02/28/17 at 08:00 Duloxetine HCl (Cymbalta) 30 mg HS PO Last administered on 03/07/17 19:52; Start 02/28/17 at 21:00 Duloxetine HCl (Cymbalta) 30 mg DAILY PO Last administered on 03/07/17 07:57; Start 02/28/17 at 09:00 Duloxetine HCl (Cymbalta) 20 mg DAILY PO Last administered on 03/07/17 07:57; Start 02/28/17 at 09:00 Docusate Calcium (Surfak) 240 mg DAILY PO Last administered on 03/07/17 07:58 ; Start 02/28/17 at 09:00 Metoprolol Succinate (Toprol Xl) 12.5 mg DAILY PO Last administered on at 08:01; Start 1/29/18 at 09:00 Active Scripts Active Reported Vitamin D3 (Cholecalciferol (Vitamin D3)) 1,000 Unit Tablet 2,000 Unit PO BID Abilify (Aripiprazole) 5 Mg Tablet 5 Mg PO DAILY Ambien (Zolpidem Tartrate) 5 Mg Tablet 5 Mg PO PRN QHS PRN Benefiber (Wheat Dextrin) 1 Each Powd.pack 1 Packet PO BIDACBL Trazodone Hcl 50 Mg Tablet 75 Mg PO QHS Theragran-M Premier 50+ Caplet (Mv-Mn/Fa/Coq10/Lycopene/Lutein) 1 Each Tablet 1 Tab PO DAILY Miralax (Polyethylene Glycol 3350) 17 Gm Powd.pack 17 Gm PO QODAY Percocet 10-325 Mg Tablet (Oxycodone Hcl/Acetaminophen) 1 Each Tablet 1 Tab PO PRN Q4HRS PRN Metoprolol Succinate ( Xl ) (Metoprolol Succinate) 25 Mg Tab.er.24h 25 Mg PO DAILY Metformin Hcl 500 Mg Tablet 500 Mg PO BIDWMEALS Magnesium Oxide 400 Mg Tablet 400 Mg PO DAILY Klor-Con Sprinkle (Potassium Chloride) 10 Meq Capsule.er 10 Meq PO DAILY Finasteride 5 Mg Tablet 5 Mg PO DAILY Duloxetine Hcl 30 Mg Capsule.dr 30 Mg PO BID B-12 (Cyanocobalamin (Vitamin B-12)) 1,000 Mcg Tablet.er 1,000 Mcg PO DAILY Clotrimazole 15 Gm Cream..g. 1 Michelle TP BID Atorvastatin Calcium 20 Mg Tablet 20 Mg PO QHS Aspirin 81 Mg Tab.chew 81 Mg PO DAILY I have reviewed the current psychotropics carefully including drug interactions. Risk benefit ratio favors no change other than as noted in my dictated progress note. Diagnosis: Problems: (1) Anxiety disorder (2) Major depressive disorder, recurrent episode (3) Cognitive and behavioral changes (4) Delusion (5) Impulse control disorder (6) Suicidal ideation MARIA ELENA SHEPHERD MD Mar 07, 2017 20:05
[2017-03-08] MEDS: oxyCODONE/APAP 10/325 1 TAB TABLET PO PRN ×2 (03:04→19:23)
[2017-03-08 06:14] VITALS: BP 155/70
[2017-03-08] MEDS: metFORMIN 500 MG TABLET PO SCH ×2 (08:17→17:12)
[2017-03-08] MEDS: POTASSIUM CHLORIDE 10 MEQ TABLET.ER. PO SCH (08:17)
[2017-03-08] MEDS: CYANOCOBALAMIN (VITAMIN B-12) 1,000 MCG TABLET. PO SCH (08:18)
[2017-03-08] MEDS: DULoxetine HCL 30 MG CAPSULE.DR PO SCH ×2 (08:18→19:17)
[2017-03-08] MEDS: PSYLLIUM SEED (WITH SUGAR) PACKET. PO SCH (08:18)
[2017-03-08] MEDS: DULoxetine HCL 20 MG CAPSULE.DR PO SCH (08:18)
[2017-03-08] MEDS: MULTIVITAMIN with MINERAL TABLET. PO SCH (08:18)
[2017-03-08] MEDS: ASPIRIN 81 MG TAB.CHEW PO SCH (08:19)
[2017-03-08] MEDS: CHOLECALCIFEROL (VITAMIN D3) 1,000 UNIT TABLET PO SCH ×2 (08:19→19:17)
[2017-03-08] MEDS: MAGNESIUM OXIDE 400 MG TABLET PO SCH (08:19)
[2017-03-08] MEDS: LACTOBACILLUS RHAMNOSUS GG 1 CAPSULE. PO SCH ×2 (08:19→19:17)
[2017-03-08] MEDS: FINASTERIDE 5 MG TABLET PO SCH (08:19)
[2017-03-08] MEDS: DOCUSATE CALCIUM 240 MG CAPSULE PO SCH (08:19)
[2017-03-08] MEDS: ARIPiprazole 5 MG TABLET PO SCH (08:19)
[2017-03-08] MEDS: METOPROLOL SUCC 24HR ER 25 MG TAB.ER.24H. PO SCH (08:20)
--- NOTE | 2017-03-08 14:28 | PN ---
DATE: 03/07/2017 SUBJECTIVE: The patient was seen today, met with the staff, chart reviewed. Staff report some improvement. The patient apparently went into a deep depression after his 3 months ago, was having frequent thoughts of suicide. The patient is still withdrawn, isolated. The patient is planning for discharge soon. He is hoping to stay with a friend and also continue outpatient treatment at [place], [place]. OBSERVATION: VITAL SIGNS: Temperature 97.4, blood pressure 153/84, pulse 83, respirations 20, O2 sat 92%. Slept about 8 hours last night. His appetite is normal. The patient denies of having had any falls. The patient is not having any physical complaints. CURRENT MEDICATIONS: Include Cymbalta 30 mg at night plus 20 mg daily and 30 mg daily, a total of 80 mg daily; trazodone 75 mg at night; Abilify 5 mg daily. The patient is also on Zolpidem 5 mg at bedtime p.r.n. The patient denies to have any side effects to the medications. LABORATORY DATA: The patient's labs reviewed, which are all within normal range except for an elevated blood sugar. IMPRESSION: Major depressive disorder, recurrent, moderate. PLAN: To continue with the treatment. Consider discharge when a placement if not available in the next 2-3 days if he continues to show improvement. CHESTER WEN MD DR: MARIELENA/navid JOB#: [id number] / [id number]
[2017-03-08 15:59] VITALS: BP 111/68
[2017-03-08] MEDS: ATORVASTATIN CALCIUM 20 MG TABLET PO SCH (19:17)
[2017-03-08] MEDS: traZODone 50 MG TABLET. PO SCH (19:17)
[2017-03-09] MEDS ORDERED: ACET325T21 PO (00:04)
[2017-03-09] MEDS ORDERED: DOCU240C30 PO (00:06)
[2017-03-09] MEDS ORDERED: DULO30CA2 PO (00:07)
[2017-03-09] MEDS ORDERED: DULO20CA50 PO (00:08)
[2017-03-09] MEDS ORDERED: LACT1CAP21 PO (00:09)
[2017-03-09] MEDS ORDERED: MAG30ORA2 PO (00:11)
[2017-03-09] MEDS ORDERED: METH29OI TP (00:12)
[2017-03-09] MEDS ORDERED: MAGN400O7 PO (00:12)
--- NOTE | 2017-03-09 00:17 | DS ---
DATE OF DISCHARGE: 03/09/2017 FINAL DIAGNOSES: AXIS I: 1. Major depressive disorder, recurrent, severe with suicidal ideation. 2. Cognitive disorder, unspecified. 3. Anxiety disorder, unspecified. 4. Impulse control disorder, unspecified. REASON FOR ADMISSION: This 77-year-old male was referred by his primary care physician, Dr. Rebolledo. The patient apparently presented with marked symptoms of depression, ruminating about suicide or cutting his wrist. The patient apparently lost his about 3 or 4 months ago. Since then, he has been very depressed, feeling hopeless and helpless. So, apparently he presented himself at [facility] in [facility] and then he was advised to come here. HISTORY OF PRESENT ILLNESS: The patient has been living with his stepson and apparently everything was going well until his about 4 months ago, his depression got worse and also not sleeping well, ruminative thinking, obsessive and repetitive thinking wanting to kill himself. The patient apparently was evicted from his house in [place] and he did not have any place to stay, he moved with his stepson. The patient also has a friend who he stayed with before. The patient denied of any homicidal ideation. No history of bipolar disorder. HOSPITAL COURSE: The patient had a physical exam, routine lab work including CBC, Chem profile. Urinalysis was within the normal range except slight increase in blood sugar. The patient was involved in the program including individual therapy, group therapy, activity therapy. The patient was continued on his medications including metoprolol 12.5 mg daily, Cymbalta 80 mg daily, Lipitor 20 mg at night, trazodone 75 mg at night, B12 1000 mcg daily, vitamin D, aspirin 81 mg daily, Abilify 5 mg daily, metformin 500 mg b.i.d., zolpidem 5 mg at night p.r.n. The patient is able to attend all the activities, able to gain some insight to his problems. The patient's vital signs were also stable. Temperature 98.2, blood pressure 155/70, pulse 72, respirations 18, O2 sat 95%. AFTERCARE PLAN: The patient was discharged at his request, but he is going to stay with his friend and also the director of social media marketing will help him to get into contact with the outpatient services and he will continue with the medications and also outpatient treatment for his depression. CHESTER WEN MD DR: MARIELENA/navid JOB#: [id number] / [id number]
[2017-03-09] MEDS ORDERED: PSYL575P4 PO (00:18)
[2017-03-09] MEDS ORDERED: MULT-638 PO (00:19)
--- NOTE | 2017-03-09 00:25 | PN ---
DATE: 03/06/2017 This late entry 02/26/2017 covers elements not covered in my initial note 03/06/2017. I met with the patient in the evening of 03/06/2017. The patient has been calm, cooperative, very interactive. Mood was improved. REVIEW OF SYSTEMS: Ambulation impaired with walker. No CV, , pulmonary, eye, ENT system symptoms on review. MENTAL STATUS EXAM: Reasonably oriented. Speech coherent, abstraction fair, computation impaired, language function intact. Mood and affect showing improvement. No suicidal or homicidal ideations. Still somewhat depressed. LABORATORY DATA: Reviewed. IMPRESSION: Unchanged from initial note. PLAN: Continue current psychotropics. MARIA ELENA SHEPHERD MD DR: AJITH/navid JOB#: [id number] / [id number]
[2017-03-09] MEDS: oxyCODONE/APAP 10/325 1 TAB TABLET PO PRN (05:58)
[2017-03-09 06:02] VITALS: BP 169/84
[2017-03-09 06:54] LABS: BASO # 0.1 x10^3/uL (0.0-0.2); BASO % 1 % (0-3); EOS # 0.4 x10^3/uL (0.0-0.7); EOS % 5 % (0-3); HEMATOCRIT 43.8 % (39.0-53.0); HEMOGLOBIN 15.1 g/dL (13.0-17.5); LYMPH # 2.4 x10^3/uL (1.0-4.8); LYMPH % 30 % (24-48); MEAN CORPUSCULAR HEMOGLOBIN 32 pg (25-35); MEAN CORPUSCULAR HGB CONC 34 g/dL (31-37); MEAN CORPUSCULAR VOLUME 92 fL (79-100); MONO # 0.6 x10^3/uL (0.0-1.1); MONO % 8 % (0-9); NEUT # 4.6 x10^3uL (1.8-7.7); NEUT % 57 % (31-73); PLATELET COUNT 222 x10^3/uL (140-400); RED BLOOD COUNT 4.78 x10^6/uL (4.30-5.70); RED CELL DISTRIBUTION WIDTH 13.7 % (11.5-14.5); WHITE BLOOD COUNT 8.1 x10^3/uL (4.0-11.0)
[2017-03-09 07:11] LABS: ALBUMIN 3.6 g/dL (3.4-5.0); ALBUMIN/GLOBULIN RATIO 0.8 (1.0-1.7); CALCIUM 9.6 mg/dL (8.5-10.1); CREATININE 0.8 mg/dL (0.7-1.3); GFR 93.5; MAGNESIUM 1.7 mg/dL (1.8-2.4); POTASSIUM 4.1 mmol/L (3.5-5.1); TOTAL BILIRUBIN 0.5 mg/dL (0.2-1.0); TOTAL PROTEIN 7.9 g/dL (6.4-8.2)
[2017-03-09] MEDS: PSYLLIUM SEED (WITH SUGAR) PACKET. PO SCH (09:02)
[2017-03-09] MEDS: DULoxetine HCL 30 MG CAPSULE.DR PO SCH (09:03)
[2017-03-09] MEDS: DULoxetine HCL 20 MG CAPSULE.DR PO SCH (09:03)
[2017-03-09] MEDS: LACTOBACILLUS RHAMNOSUS GG 1 CAPSULE. PO SCH (09:03)
[2017-03-09] MEDS: POTASSIUM CHLORIDE 10 MEQ TABLET.ER. PO SCH (09:03)
[2017-03-09] MEDS: CHOLECALCIFEROL (VITAMIN D3) 1,000 UNIT TABLET PO SCH (09:03)
[2017-03-09] MEDS: ARIPiprazole 5 MG TABLET PO SCH (09:03)
[2017-03-09] MEDS: CYANOCOBALAMIN (VITAMIN B-12) 1,000 MCG TABLET. PO SCH (09:03)
[2017-03-09] MEDS: DOCUSATE CALCIUM 240 MG CAPSULE PO SCH (09:03)
[2017-03-09] MEDS: MAGNESIUM OXIDE 400 MG TABLET PO SCH (09:03)
[2017-03-09] MEDS: FINASTERIDE 5 MG TABLET PO SCH (09:03)
[2017-03-09] MEDS: metFORMIN 500 MG TABLET PO SCH (09:03)
[2017-03-09] MEDS: ASPIRIN 81 MG TAB.CHEW PO SCH (09:04)
[2017-03-09] MEDS: METOPROLOL SUCC 24HR ER 25 MG TAB.ER.24H. PO SCH (09:04)
[2017-03-09] MEDS: MULTIVITAMIN with MINERAL TABLET. PO SCH (09:04)
[2017-03-09] MEDS: POLYETHYLENE GLYCOL 3350 17 GM PACKET. PO SCH (09:08)
[2017-03-09 16:00] VITALS: BP 133/84
--- NOTE | 2017-03-09 16:52 | PN ---
DATE: 03/08/2017 SUBJECTIVE: The patient was seen today, met with the staff, chart reviewed. Staff reports significant improvement, is no longer expressing any negative thoughts, still has periods of depression. Apparently, he lost his 3 months ago. The patient is working with the staff with regard to discharge plans. OBSERVATION: VITAL SIGNS: Temperature 98.2, blood pressure 155/70, pulse 72, respirations 18, O2 sat 95%. Slept about 5-1/2 hours last night. CURRENT MEDICATIONS: Reviewed. Currently on Cymbalta 30 mg at night plus 20 mg daily and 30 mg daily, total of 80 mg daily; trazodone 75 mg at night and Abilify 5 mg daily. The patient is also on zolpidem 5 mg at bedtime. He is not having any side effects. LABORATORY DATA: The patient's lab reviewed. IMPRESSION: Major depressive disorder, recurrent, moderate. PLAN: The patient is scheduled for discharge tomorrow and will be staying with his friend and is referred to outpatient services for followup. CHESTER WEN MD DR: MARIELENA/navid JOB#: [id number] / [id number]
--- NOTE | 2017-03-09 21:34 | DS ---
DATE OF DISCHARGE: 03/09/2017 DISCHARGE DIAGNOSES: AXIS I: 1. Major depressive disorder, recurrent, severe with suicidal ideation. 2. Cognitive disorder, unspecified. 3. Anxiety disorder, unspecified. AXIS II: None. AXIS III: Hypertension, diabetes, asthma, osteoarthritis, obesity, sleep apnea. REASON FOR ADMISSION: This 77-year-old male who was admitted to [facility], at the recommendation of Dr. Rebolledo, his primary care physician, who saw him at the office at [facility], because he was presenting with marked symptoms of depression, constantly ruminating, talking about suicide and cutting his wrist. The patient lost his about 4 months ago and his depression has gotten worse. HISTORY OF PRESENT ILLNESS: The patient has been living with gillon and they were recently evicted from home in [place] and also loss of his has triggered his depression to the point he is talking about suicidal. The patient also having difficulty with his sleep and constant thoughts of suicide, problems with concentration and thinking, feeling hopeless and helpless. The patient did not express any homicidal ideation. The patient has no prior history of suicidal at times. HOSPITAL COURSE: The patient was involved in the program including individual therapy, group therapy, activity therapy. The patient had a complete lab work including CBC, chem profile, urinalysis, which were all within normal range except for elevated blood sugar. AST was slightly high 38. The patient's hemoglobin A1c was 7.1. The patient's BUN and creatinine ratio was 21. The patient's urinalysis was within normal limits. The patient's RPR was nonreactive. The patient will continue with all of his medications that included metoprolol 12.5 mg daily, Cymbalta 80 mg daily, Lipitor 20 mg at night, trazodone 75 mg at night, Abilify 5 mg daily, aspirin 81 mg daily. The patient did show improvement, did not have any major side effects. The patient did not have any falls. AFTERCARE PLAN: The patient at the time of discharge was medically stable. The patient will be staying with his friend. The patient will continue with the outpatient services. The patient at the time of discharge was not expressing any suicidal or homicidal thoughts. CHESTER WEN MD DR: Shaun JOB#: [id number] / [id number]
== END 2017-03-09 17:10 | disposition home health service (06) | DRG 885 ==
LOC: ER 16:54 → GEROPSY 22:30
PROVIDERS: ADMIT Psychiatry & Neurology Psychiatry; ATTEND Psychiatry & Neurology Psychiatry
DX: F33.3 Major depressive disorder, recurrent, severe with psychotic symptoms (principal); E11.65 Type 2 diabetes mellitus with hyperglycemia; R45.851 Suicidal ideations; N39.0 Urinary tract infection, site not specified; F41.9 Anxiety disorder, unspecified; M19.90 Unspecified osteoarthritis, unspecified site; I10 Essential (primary) hypertension; M48.00 Spinal stenosis, site unspecified; G47.33 Obstructive sleep apnea (adult) (pediatric); E78.5 Hyperlipidemia, unspecified; J45.909 Unspecified asthma, uncomplicated; F63.9 Impulse disorder, unspecified; E66.01 Morbid (severe) obesity due to excess calories; F09 Unspecified mental disorder due to known physiological condition; G47.00 Insomnia, unspecified; N40.0 Benign prostatic hyperplasia without lower urinary tract symptoms; Z93.3 Colostomy status; Z79.899 Other long term (current) drug therapy; Z79.82 Long term (current) use of aspirin; Z79.84 Long term (current) use of oral hypoglycemic drugs; Z68.39 Body mass index [BMI] 39.0-39.9, adult
CPT/HCPCS: 36415; 80053; 80061; 81001; 82306; 82607; 82947; 83036; 83540; 83550; 83735; 84436; 84443; 84480; 85025; 86593; 87086; 87186; 93005; 99285-25